=== PATIENT | male | born 1990 | race Caucasian/White ===

== ENCOUNTER 2022-01-22 18:56 | Emergency (ER) | payer OTHER, SELFPAY ==
--- NOTE | 2022-01-22 18:58 | ED.URI ---
HPI - URI/Sore Throat General Chief Complaint: Upper Respiratory Infection Stated Complaint: cough, sore throat, congestion Time Seen by Provider: 01/22/22 19:11 Source: patient and RN notes reviewed Mode of arrival: ambulatory Limitations: no limitations History of Present Illness HPI Narrative: 31-year-old male presents concern for 1 day history of fever, body aches, nasal congestion, rhinorrhea, cough. Reports he has taken Tylenol. He reports his son has been sick and so has his . MD elicited complaint: cough and sore throat Related Data Allergies Allergy/AdvReac Type Severity Reaction Status Date / Time No Known Allergies Allergy Verified 01/22/22 19:00 Review of Systems Review of Systems: CONSTITUTIONAL: Reports malaise, fever. EYES: Denies visual changes, redness, or discharge. ENT: Reports rhinorrhea, congestion, sore throat. Denies sinus pain, otalgia CARDIOVASCULAR: Denies chest pain, palpitations, or edema. RESPIRATORY: Reports cough. Denies dyspnea. GASTROINTESTINAL: Denies abdominal pain, nausea, vomiting, diarrhea SKIN: Denies rash or itching. MUSCULOSKELETAL: Reports myalgia. NEUROLOGIC: Denies headache. All systems reviewed & are unremarkable except as noted in HPI and below PMFSH Comments At time of signature, agree with nursing past medical, surgical, social and family history. There is no relevant family history pertinent to the presenting complaint Exam Narrative: GENERAL: Well-appearing, well-nourished, and in no acute distress. HEAD: Normocephalic EYES: PERRLA, conjunctivae clear ENT: Nares clear, clear discharge. Mucous membranes moist. TM pearly mares with sharp light reflex bilaterally; no tragal tenderness. Oropharynx not erythematous without lesions. Tonsils not enlarged and without exudate, no drooling, no hoarseness, no trismus, uvula midline. NECK: Supple. No lymphadenopathy CHEST: Clear to auscultation, breath sounds equal. No wheezing, rhonchi, rales, or stridor. No respiratory distress, speaks in full sentences. Cough noted HEART: Regular rate and rhythm. No murmur heard. SKIN: Warm, dry, no rash. NEURO: Alert and oriented x3. PSYCH: Normal mood and affect Course Course Emergency Course: Patient is aware of diagnosis, understands and agrees to treatment plan. Anticipatory guidance given. Patient agrees to follow-up as directed and is aware of reasons to seek care at the emergency department. Portions of this record may have been created with voice recognition software Level of Care: Express Care Visit Vital Signs Vital signs: Reviewed. MDM - URI/Sore Throat MDM Narrative Medical decision making narrative: Differential diagnosis considered: Tracy virus, strep pharyngitis, allergic rhinitis, upper respiratory tract infection, sinusitis, rhinosinusitis, nasopharyngitis. viral pharyngitis, otitis media, otitis externa, pneumonia, bronchitis, viral cough syndrome, viral syndrome, and influenza. Exam findings show no acute concerns or changes; patient is non-toxic appearing and is in no distress. Patient is appropriate for outpatient treatment and follow-up. Lab Data Attestation: I reviewed the patient's lab results. Critical Care Time Critical Care Time Critical Care Time: No Discharge Plan Discharge Clinical Impression: Influenza-like illness Patient Disposition: Home, Self-Care Condition: Stable Instructions: Viral Syndrome (ED) Additional Instructions: -Your symptoms are likely caused by a virus, and antibiotic does not cure viral illness. -Take strict precautions to prevent the spread of your virus. Be diligent about covering your cough (even when you are alone) and washing your hands frequently. -You may contagious until you have been symptom and/or fever free for 24 hours without fever reducing medicine -Alternate Ibuprofen and Tylenol for pain and fever relief (per package directions) -Some Cough medicines may make you drowsy, do not take it if you have
[2022-01-22 19:07] VITALS: BP 129/84; PULSE 73; RESP 16; TEMP 37.6; O2SAT 99
== END 2022-01-22 19:26 | disposition home or self-care (01) ==
PROVIDERS: Emergency Provider Nurse Practitioner
DX: J11.1 Influenza due to unidentified influenza virus with other respiratory manifestations (principal)
CPT/HCPCS: 87804; 99213; G0463

== ENCOUNTER 2022-01-29 19:18 | Emergency (ER) | payer OTHER, SELFPAY ==
[2022-01-29 19:25] VITALS: BP 138/79; PULSE 59; RESP 16; O2SAT 99
--- NOTE | 2022-01-29 19:36 | ED.URI ---
HPI - URI/Sore Throat General Chief Complaint: Upper Respiratory Infection Stated Complaint: sore throat Time Seen by Provider: 01/29/22 19:30 Source: patient and RN notes reviewed Mode of arrival: ambulatory Limitations: no limitations History of Present Illness HPI Narrative: 31 y/o male presented for c/o sore throat for about one week. Endorses for about 1-2 weeks sinus congestion, drainage, cough, and fever. Here last week for the same complaints, dx with viral infection. Pt taking Sudafed and robitussin with codeine as directed for symptoms. Denies improvement. is sick with similar symptoms. MD elicited complaint: cough Related Data Allergies Allergy/AdvReac Type Severity Reaction Status Date / Time No Known Allergies Allergy Verified 01/22/22 19:00 Review of Systems Review of Systems: CONSTITUTIONAL: Endorses malaise, chills, sweats, fever EYES: Denies visual changes, redness, or discharge ENT: Reports rhinorrhea, congestion, sinus pain, sore throat CARDIOVASCULAR: Denies chest pain, palpitations, edema RESPIRATORY: Reports cough, post nasal drainage. Denies dyspnea GASTROINTESTINAL: Denies abdominal pain, nausea, vomiting, diarrhea SKIN: Denies rash or itching Exam Narrative: GENERAL: well-appearing EYES: PERRLA, conjunctivae clear ENT: Mucous membranes moist. Right TM pearly mares with normal light reflex Left TM mild erythema with normal light reflex; no tragal tenderness. Oropharynx erythematous with left tonsillar lesion c/w stone; no drooling, no hoarseness, no trismus, uvula midline. Lesion to tongue left of midline stating he bit his tongue. NECK: Supple. No lymphadenopathy CHEST: Clear to auscultation, breath sounds equal. HEART: Regular rate and rhythm. No murmur heard. SKIN: Warm, dry, no rash. Course Course Emergency Course: Patient is aware of diagnosis, understands and agrees to treatment plan. Anticipatory guidance given. Patient agrees to follow-up as directed and is aware of reasons to seek care at the emergency department. Portions of this record may have been created with voice recognition software Level of Care: Express Care Visit Vital Signs Vital signs: Vital Signs Pulse Rate 59 L 01/29/22 19:25 Respiratory Rate 16 01/29/22 19:25 Blood Pressure 138/79 01/29/22 19:25 Pulse Oximetry 99 01/29/22 19:25 Oxygen Delivery Room Air 01/29/22 19:25 Pulse Rate 59 L 01/29/22 19:25 Respiratory Rate 16 01/29/22 19:25 Blood Pressure 138/79 01/29/22 19:25 Pulse Oximetry 99 01/29/22 19:25 Oxygen Delivery Room Air 01/29/22 19:25 reviewed MDM - URI/Sore Throat MDM Narrative Medical decision making narrative: Neg strep reviewed with pt. Advised supportive measures and signs/symptoms to go to the ER. Pt is appropriate for outpt treatment and f/u. Differential Diagnosis Differential diagnosis: Likely upper respiratory infection, sinusitis, viral infection, bronchitis and pharyngitis Discharge Plan Discharge Clinical Impression: Upper respiratory infection Qualifiers: URI type: unspecified URI Qualified Code(s): J06.9 - Acute upper respiratory infection, unspecified Patient Disposition: Home, Self-Care Condition: Stable Instructions: Upper Respiratory Infection (ED) Additional Instructions: Rapid strep swab was negative today You will be notified in a few days if the culture comes back positive for strep, and appropriate antibiotics will be called in at that time. if symptoms are due to a viral illness, it is not treated with antibiotics. Viral symptoms can be present for up to 10-14 days. Recommend Flonase spray and Zyrtec for sinus congestion Cough syrup may cause drowsiness; avoid driving or take it at night time. Tylenol every 8 hours as needed for pain/fever Soft foods, cool liquids, warm tea. Gargle with warm saltwater twice a day. Chloraseptic spray and throat lozenges. Rest and stay hydrated. --Follow up with your PCP if symptom
== END 2022-01-29 19:46 | disposition home or self-care (01) ==
PROVIDERS: Emergency Provider Nurse Practitioner Family
DX: J06.9 Acute upper respiratory infection, unspecified (principal)
CPT/HCPCS: 87081; 87880; 99213; G0463

== ENCOUNTER 2022-06-17 19:53 | Emergency (ER) | payer OTHER, SELFPAY ==
[2022-06-17 20:10] VITALS: BP 133/75; PULSE 65; RESP 16; TEMP 36.8; O2SAT 99
--- NOTE | 2022-06-17 20:21 | ED.NAVMDI ---
HPI - Nausea/Vomiting/Diarrhea General Chief complaint: Nausea/Vomiting/Diarrhea Stated complaint: DIARRHEA/ELEVATED BLOOD PRESSURE Source: patient and RN notes reviewed History of Present Illness HPI Narrative: 32 year male presents to urgent care with complaints of diarrhea and headache since this morning. Patient states he took his blood pressure 3 times today at the [facility] which were all elevated with the systolic reading being in the 140s. Patient denies a history of high blood pressure. Denies any vomiting, fevers, chills chest pain, shortness of breath. Denies any dizziness or blurry vision. Denies any abdominal pain. Patient states he took an aspirin hours ago. Some parts of this dictation were generated by voice recognition software and may contain typographical and/or grammatical inaccuracies. Related Data Allergies Allergy/AdvReac Type Severity Reaction Status Date / Time No Known Allergies Allergy Verified 01/22/22 19:00 Review of Systems Review of Systems: Pertinent positives and pertinent negatives per HPI. PMFSH Comments At the time of my signature, I reviewed and agree with the nursing past medical, surgical, social, and family history. There is no relevant family history pertinent to the patient complaint. Exam Narrative: GENERAL: This is a well-nourished, well-developed patient, in no apparent distress. HEAD: normocephalic, atraumatic. EYES: PERRL. Sclera clear/white. Vision is grossly intact. EARS: External ears normal, auditory canals clear and without drainage, TMs normal without perforation. Hearing grossly intact. NOSE: External nose normal with no obvious nasal discharge, nares without redness, no rhinorrhea. THROAT: Mucous membranes moist, posterior pharynx clear. NECK: Neck supple, non-tender without lymphadenopathy, masses or thyromegaly. CARDIOVASCULAR: Regular rate and rhythm without murmurs, gallops, or rubs. RESPIRATORY: Clear to auscultation. Breath sounds equal bilaterally. No wheezes, rales, or rhonchi. GASTROINTESTINAL: Abdomen soft, non-tender, nondistended. Bowel sounds are active. No hepato-splenomegaly, or palpable masses. No guarding. SKIN: warm, intact with no suspicious lesions or rash, good texture and turgor. NEURO: awake, alert, and oriented to person, place and time. There were no obvious focal neurologic abnormalities. EXTREMITIES: No clubbing, cyanosis, or edema. No joint tenderness, effusion, or edema noted. BACK: Nontender without deformity or crepitance. No flank tenderness. Course Course Level of Care: Express Care Visit Vital Signs Vital signs: Vital Signs Temperature 98.2 F 06/17/22 20:10 Pulse Rate 65 06/17/22 20:10 Respiratory Rate 16 06/17/22 20:10 Blood Pressure 133/75 06/17/22 20:10 Pulse Oximetry 99 06/17/22 20:10 Temperature 98.2 F 06/17/22 20:10 Pulse Rate 65 06/17/22 20:10 Respiratory Rate 16 06/17/22 20:10 Blood Pressure 133/75 06/17/22 20:10 Pulse Oximetry 99 06/17/22 20:10 Reviewed MDM - Nausea/Vomiting/Diarrhea MDM Narrative Medical decision making narrative: You've been diagnosed with a viral illness that would not require antibiotics at this time. You may take Imodium for diarrhea and get plenty of fluids. If you would like to eat food, you should follow the BRAT diet (bananas, rice, applesauce, and toast, or things of the like). If you develop any new or worsening symptoms, you should go to the emergency dept without hesitation. Follow up with your primary clinician in 2-5 days. Differential Diagnosis Differential diagnosis: Likely food poisoning, gastroenteritis and dehydration Critical Care Time Critical Care Time Critical Care Time: No Discharge Plan Discharge Clinical Impression: Gastroenteritis Patient Disposition: Home, Self-Care Condition: Stable Instructions: Gastroenteritis (ED) Additional Instructions: You've been diagnosed with a viral illness that would not require antibio
== END 2022-06-17 20:27 | disposition home or self-care (01) ==
PROVIDERS: Emergency Provider Nurse Practitioner Family
DX: K52.9 Noninfective gastroenteritis and colitis, unspecified (principal)
CPT/HCPCS: 99211; G0463

== ENCOUNTER 2022-10-22 17:53 | Observation (INO) | payer OTHER, SELFPAY ==
[2022-10-22] VITALS (11 sets, daily range): BP systolic 108–132; BP diastolic 48–76; PULSE 77–97; RESP 15–22; TEMP 36.7–37.8; O2SAT 96–100; BMI 33.2
--- NOTE | ~2022-10-22 | CT_ITS ---
EXAMINATION: CT abdomen pelvis w con DATE: 10/22/2022 20:50 INDICATION: right lower quadrant pain, n, v TECHNIQUE: Computed tomography (CT) of the abdomen and pelvis was performed with 100 mL Omnipaque-350 intravenous contrast. Automated exposure control and iterative reconstruction technique were employe d. The dose-length product was 995.84 mGy-cm. COMPARISON: None. FINDINGS: Lower thorax: Unremarkable Liver: Small hypodensities in the anterior left liver lobe and posterior right lobe, likely cysts or hemangiomas. Biliary/Gallbladder: Gallbladder is absent. No bile duct dilation. Pancreas: No mass or duct dilation. Spleen: Normal. Adrenals:No mass. Kidneys: No mass, stone, or hydronephrosis. GI tract: Multiple loops of mildly dilated small bowel in the upper and mid abdomen, no transition po int, pneumatosis, and interloop fluid, or wall thickening. No large bowel dilation. Mild periappendic eal stranding without dilation. Mesentery/Peritoneum: No ascites, mass, or free air. Retroperitoneum: No mass. Pelvis: Pelvic organs are within normal limits. Soft Tissues: Soft tissues and body wall unremarkable. Bones: No acute osseous finding. IMPRESSION: Mild periappendiceal stranding may represent mild/early acute uncomplicated appendicitis in the appro priate clinical context. Multiple loops of dilated small bowel in the upper and mid abdomen without focal transition point. Th conrad findings may be related to small bowel ileus, noting that early or partial obstruction are not ex cluded. Reviewed, dictated and finalized at location K. IMPRESSION: Mild periappendiceal stranding may represent mild/early acute uncomplicated charlie endicitis in the appropriate clinical context. Multiple loops of dilated small bowel in the upper and mid abdomen without foca l transition point. These findings may be related to small bowel ileus, noting that early or partial obstruction are not excluded.
--- NOTE | ~2022-10-22 | XR_ITS ---
EXAMINATION: XR chest 1V Exam Date/Time: 10/22/2022 20:40 CDT HISTORY: cough, body aches, fever, n/v Comparison: None. RESULT: Lines, tubes, and devices: None. Lungs and pleura: Clear. Cardiomediastinal silhouette: Normal. Other: No acute osseous or upper abdominal finding. IMPRESSION: No acute cardiopulmonary process. Reviewed, dictated and finalized at location K.
--- NOTE | 2022-10-22 17:58 | ECG_ITS ---
Measurements Intervals [place] Rate: 99 P: 15 [place]: 142 QRS: 0 QRSD: 103 T: 45 QT: 340 QTc: 437 Interpretive Statements SINUS RHYTHM DELAYED PRECORDIAL R/S TRANSITION ST ELEVATION IN DIFFUSE LEADS- CONSISTENT WITH INJURY, PERICARDITIS, OR EARLY REPOLARIZATION BASELINE WANDER- II, III ABNORMAL ECG NO PREVIOUS ECG AVAILABLE FOR COMPARISON Electronically Signed On 10-22-2022 21:20:51 CDT by Marc Jade D.O.
--- NOTE | 2022-10-22 19:57 | ED.GENADULT ---
HPI - General Adult General Chief complaint: Weakness Stated complaint: WEAK,N/V/D Time Seen by Provider: 10/22/22 19:44 History of Present Illness HPI narrative: Patient is a 32-year-old gentleman who presents emergency department with chief complaint of fever body aches generalized malaise nausea vomiting. The patient reports the symptoms started this weekend after he played softball. The patient reports that he recently traveled to [place] with his significant other and reports that he started having body aches and pain between his shoulder blades. The patient states that he has had a little bit of a cough and has had nausea and vomiting and has not been able to keep much fluids down. Patient reports that he has taken ibuprofen with his last dose being in the emergency department department around 6 PM. The patient reports that he has pain throughout his abdomen that is not improved by anything Related Data Home Medications Medication Instructions Recorded Confirmed No Home Medications 06/17/22 06/17/22 Allergies Allergy/AdvReac Type Severity Reaction Status Date / Time No Known Allergies Allergy Verified 01/22/22 19:00 Review of Systems Review of Systems: A 10 system review of systems was completed on the patient and is negative except for what is stated in the HPI. Nursing and ancillary documentation was reviewed. PMFSH Comments Past surgical history significant for cholecystectomy Exam Narrative: GENERAL: Well-appearing, well-nourished, and in no acute distress. HEAD: Normocephalic, atraumatic. EYES: PERRLA and EOMI. ENT: Nares clear, no rhinorrhea or epistaxis. Mucous membranes moist. NECK: Supple. No nuchal rigidity CHEST: Clear to auscultation. No respiratory distress. HEART: Regular rate and rhythm. No murmur heard. Normal peripheral pulses. ABDOMEN: Soft, tenderness to palpation in the right lower quadrant and left lower quadrant and right upper quadrant, nondistended, normal active bowel sounds. EXTREMITIES: Normal range of motion. No edema. SKIN: Warm, dry, no rash. NEURO: No focal deficits. Alert and oriented x3. PSYCH: Normal mood and affect. Course Vital Signs Vital signs: Vital Signs Temperature 37.8 C H 10/22/22 17:57 Pulse Rate 97 10/22/22 17:57 Respiratory Rate 18 10/22/22 17:57 Blood Pressure 128/73 10/22/22 17:57 Pulse Oximetry 99 10/22/22 17:57 Oxygen Delivery Room Air 10/22/22 17:57 Temperature 37.8 C H 10/22/22 17:57 Pulse Rate 80 10/22/22 21:51 Respiratory Rate 15 10/22/22 21:51 Blood Pressure 108/48 L 10/22/22 21:51 Pulse Oximetry 100 10/22/22 21:51 Oxygen Delivery Room Air 10/22/22 17:57 Medical Decision Making [facility] Narrative Medical decision making narrative: Differential diagnosis includes viral syndrome, COVID, flu, pneumonia, appendicitis, bowel obstruction Laboratory studies were obtained on the patient which showed a white count of 12.1 electrolytes showed a slightly elevated bilirubin at 1.9 magnesium was 1.5 rest of his liver enzymes were within normal limits lipase was 31 urinalysis showed trace ketones but otherwise no evidence of infection influenza was negative COVID was negative and strep was negative Chest x-ray showed no focal infiltrate CT scan of the abdomen pelvis showed mild periappendiceal stranding concerning for mild/early appendicitis The patient was reexamined and was tender in the right lower quadrant There also was evidence of ileus on the CT scan. The case was discussed with Dr. Cuadra surgical service patient will be started on Zosyn and will be admitted to the surgical service Vital Signs Vital Signs: Vital Signs Temperature 37.8 C H 10/22/22 17:57 Pulse Rate 97 10/22/22 17:57 Respiratory Rate 18 10/22/22 17:57 Blood Pressure 128/73 10/22/22 17:57 Pulse Oximetry 99 10/22/22 17:57 Oxygen Delivery Room Air 10/22/22 17:57 Temperature 37.8 C H
[2022-10-22 20:16] LABS: Basophils Absolute Auto 0.1 K/mm3 (0.0-0.1); Basophils Percent Auto 0.4 % (0.2-1.2); Eosinophils Percent Auto 0.2 % (0-4.4); Hematocrit 42.9 % (42.0-52.0); Hemoglobin 15.2 g/dL (14.0-18.0); Immature Granulocyte Absolute 0.04 K/mm3 (0.00-0.031); Immature Granulocyte Percent A 0.3 % (0-0.5); Lymphocytes Absolute Auto 0.26 K/mm3 (0.9-3.2); Lymphocytes Percent Auto 2.1 % (18.3-44.2); Mean Corpuscular HGB Conc 35.4 g/dl (32-36); Mean Corpuscular Hemoglobin 32.7 pg (26-34); Mean Corpuscular Volume 92.3 fl (80-100); Mean Platelet Volume 9.8 fl (7.4-10.4); Monocytes Absolute Auto 0.4 K/mm3 (0.1-0.6); Monocytes Percent Auto 3.6 % (2.6-8.5); Neutrophils Absolute Auto 11.3 K/mm3 (1.3-6.7); Neutrophils Percent Auto 93.4 % (45.5-73.1); Platelet Count Result 198 k/mm3 (150-375); Red Blood Count 4.65 M/mm3 (4.6-6.20); Red Cell Distribution Width 12.2 % (11.5-14.5); White Blood Count 12.1 K/mm3 (4.5-10.0)
[2022-10-22] MEDS: ONDANSETRON INJ 4 MG/2 ML VIAL IV PUSH (20:16)
[2022-10-22] MEDS: ACETAMINOPHEN 500 MG TABLET 1000 MG PO (20:16)
[2022-10-22] MEDS: SODIUM CHLORIDE 0.9% IV 1,000 ML 999 ML IV CONT ×2 (20:17→21:06)
[2022-10-22 20:18] LABS: Appearance Urine Clear (Clear); Bilirubin Urine Negative (Negative); Blood Urine Negative (Negative); Color Urine Dark Yellow (Yellow); Glucose Urine UA Negative (Negative); Ketones Urine Trace mg/dL (Negative); Leukocyte Esterase Ur Negative LEU/UL (Negative); Nitrate Urine Negative (Negative); Protein Urine Negative (Negative); Specific Grav Ur 1.029 (1.001-1.035); pH Urine 5.5 (5.0-9.0)
[2022-10-22 20:22] LABS: Add Urine Microscopic? NO
[2022-10-22 20:31] LABS: Alanine Aminotransferase 36 U/L (6-50); Albumin Level 4.1 g/dL (3.5-5.1); Alkaline Phosphatase 85 U/L (38-126); Anion Gap 7 mmol/L (8-16); Aspartate Amino Transferase 46 U/L (17-59); Bilirubin,Total 1.9 mg/dL (0.2-1.3); Blood Urea Nitrogen 18 mg/dL (9-20); Calcium 8.2 mg/dL (8.4-10.2); Carbon Dioxide 24 mmol/L (22-30); Chloride 103 mmol/L (98-107); Estimated CRCL calculation 134 ml/min; Estimated Glomerular Filt Rate > 60; Glucose 106 mg/dL (65-110); Lipase 31 U/L (23-300); Magnesium 1.5 mg/dL (1.6-2.3); Potassium 4.1 mmol/L (3.4-5.0); Sodium 134 mmol/L (137-145)
[2022-10-22 20:32] LABS: Lactic Acid Reflex 1.1 mmol/L (0.7-2.0)
[2022-10-22] MEDS: MAGNESIUM SULF 2 GM/WATER 50ML 2 GM/50 ML BAG IVPB (21:06)
[2022-10-22 21:13] LABS: Strep Group A RT-PCR NOT DETECTED (Negative)
[2022-10-22 21:24] LABS: Influenza A QL RT-PCR Negative (Negative); Influenza B QL RT-PCR Negative (Negative); SARS-CoV-2 RNA PCR Negative (Negative)
[2022-10-22] MEDS: PIPERACILLN/TAZ 3.375GM/NS50ML 3.375 GM/50 ML BAG IVPB (22:46)
[2022-10-22] MEDS: SODIUM CHLORIDE 0.9% IV 1,000 ML 125 ML IV CONT (22:47)
[2022-10-22] MEDS: MORPHINE SULFATE (*CRX) 4 MG/ML INJ IV PUSH (23:21)
--- NOTE | 2022-10-22 23:23 | ADMGEN ---
This patient, Zeke Veloz, was admitted to 2 Medical Room 240-. Patient/family oriented to hospital policies and general routines including ID bracelet, bed and alarms, visiting hours, pain management, procedures, bathroom and other care routines, personal items, smoking policy, room service/diet, and visiting hours. Information on how to activate the Rapid Response Team has been discussed. Patient/Family are encouraged to report perceived risks to care and to ask questions if they do not understand what they are told or what they should do.
[2022-10-23] VITALS (12 sets, daily range): BP systolic 104–145; BP diastolic 55–86; PULSE 63–78; RESP 12–18; TEMP 36.4–36.9; O2SAT 93–99
[2022-10-23] MEDS: HYDROmorphone HCL INJ (*CRX) 1 MG/ML SYR IV PUSH ×2 (00:01→05:10)
[2022-10-23] MEDS: PIPERACILLN/TAZ 3.375GM/NS50ML 3.375 GM/50 ML BAG IVPB ×2 (04:52→09:50)
[2022-10-23 05:36] LABS: Hematocrit 39.4 % (42.0-52.0); Hemoglobin 13.5 g/dL (14.0-18.0); Mean Corpuscular HGB Conc 34.3 g/dl (32-36); Mean Corpuscular Hemoglobin 32.8 pg (26-34); Mean Corpuscular Volume 95.6 fl (80-100); Mean Platelet Volume 10.1 fl (7.4-10.4); Platelet Count Result 170 k/mm3 (150-375); Red Blood Count 4.12 M/mm3 (4.6-6.20); Red Cell Distribution Width 12.3 % (11.5-14.5); White Blood Count 6.4 K/mm3 (4.5-10.0)
[2022-10-23 05:43] LABS: Alanine Aminotransferase 576 U/L (6-50); Albumin Level 3.4 g/dL (3.5-5.1); Alkaline Phosphatase 101 U/L (38-126); Anion Gap 3 mmol/L (8-16); Aspartate Amino Transferase 743 U/L (17-59); Bilirubin,Total 3.5 mg/dL (0.2-1.3); Blood Urea Nitrogen 15 mg/dL (9-20); Calcium 7.6 mg/dL (8.4-10.2); Carbon Dioxide 28 mmol/L (22-30); Chloride 105 mmol/L (98-107); Estimated CRCL calculation 132 ml/min; Estimated Glomerular Filt Rate > 60; Glucose 109 mg/dL (65-110); Potassium 4.2 mmol/L (3.4-5.0); Sodium 136 mmol/L (137-145)
[2022-10-23] MEDS: SODIUM CHLORIDE 0.9% IV 1,000 ML 125 ML IV CONT (06:29)
[2022-10-23 06:35] LABS: Band Neutrophils Percent 24 % (0-6); Lymphocytes Absolute Manual 0.44 K/mm3 (1.1-4.5); Monocytes Absolute Manual 0.25 K/mm3 (0.1-0.90); Monocytes Percent Manual 4 % (3-9); Neutrophils Absolute Manual 5.69 K/mm3 (1.3-6.7); Neutrophils Percent Manual 65 % (46-73); Total Cells Counted 100
[2022-10-23 06:36] LABS: Platelet Estimate Adequate (Adequate)
[2022-10-23 06:37] LABS: Schistocytes None Seen (NORMAL)
--- NOTE | 2022-10-23 07:19 | PM.IMHP ---
H&P: HPI History of Present Illness Date/Time: 10/23/22 07:19 Chief Complaint: acute appendicitis Narrative: Pt is a 32 y/o M presenting to ED c/o 3 day h/o worsening abd pain, N/V, generalized malaise. Pt reports pain initially diffuse, but now localized to RLQ. Pt reports poor appetite and N/V. Pt denies previous similar episodes/symptoms. Pt reports subjective f/c. Review of Systems Review of Systems: All systems reviewed & are unremarkable except as noted in HPI and below Constitutional: Constitutional: Reports as per HPI, Reports anorexia, Reports body ache(s), Reports chills, Reports fatigue, Reports fever(s), Reports lethargy, Reports malaise, Reports poor appetite and Reports weakness Gastrointestinal: Gastrointestinal: Reports as per HPI, Reports abdominal pain, Reports bloating, Reports GI cramping, Reports nausea and Reports vomiting PMFSH Family History Family History Father Acute myocardial infarction Diabetes mellitus Hypertension Mother Cerebrovascular accident Social History Social History Smoking status: Never smoker Alcohol intake: never Substance use: never Lack of Transportation: No Lack of Food: Never True Current Housing: I Have Housing Concerned About Future Housing: No Difficulty Paying Gas/Electric Bills: No Difficulty Paying for Meds: No Currently Unemployed: No Education: Associate Degree Difficulty w/ Childcare or Family Care: No Spiritual care concerns: No Comments PMH - cholecystitis PSH - cholecystectomy Meds Home Medications and Allergies Home Medications Medication Instructions Recorded Confirmed Type doxycycline hyclate 20 mg tablet 40 mg PO DAILY 10/22/22 10/22/22 History Allergies Allergy/AdvReac Type Severity Reaction Status Date / Time No Known Allergies Allergy Verified 01/22/22 19:00 Vital Signs Vital Signs - 24 hr 10/22/22 17:57 10/22/22 19:43 10/22/22 19:45 Temperature 37.8 C H Pulse Rate 97 85 86 Respiratory Rate 18 22 H 18 Blood Pressure 128/73 Pulse Oximetry 99 97 96 Oxygen Delivery Room Air 10/22/22 20:00 10/22/22 20:15 10/22/22 20:30 Temperature Pulse Rate 80 80 84 Respiratory Rate 20 22 H 20 Blood Pressure Pulse Oximetry 96 96 96 Oxygen Delivery 10/22/22 20:50 10/22/22 21:00 10/22/22 21:15 Temperature Pulse Rate 86 84 91 Respiratory Rate 17 22 H 20 Blood Pressure Pulse Oximetry 96 98 97 Oxygen Delivery 10/22/22 21:51 10/22/22 23:30 10/22/22 23:13 Temperature 36.7 C Pulse Rate 80 77 Respiratory Rate 15 18 Blood Pressure 108/48 L 132/76 Pulse Oximetry 100 97 Oxygen Delivery Room Air 10/23/22 03:39 Temperature 36.8 C Pulse Rate 66 Respiratory Rate 18 Blood Pressure 104/55 L Pulse Oximetry 95 Oxygen Delivery Exam Const: General: cooperative, comfortable, no acute distress, tired appearing, uncomfortable and overweight HENMT: Head: normal to inspection, normocephalic and atraumatic Eyes: General: appearance normal, both eyes and all related structures Neck: Neck: normal visual inspection, full ROM and no lymphadenopathy Resp: Auscultation: clear to auscultation bilaterally Cardio: Rate: regular rate Rhythm: regular rhythm GI: Inspection: normal to inspection and distended GI Palp: Yes abdominal tenderness, Yes Soft to palpation, Yes Tenderness to palpation present (GI), Yes Guarding due to palpation present (GI) and No Rigid due to palpation Skin: General skin exam: normal color and no rashes or lesions noted Neuro: General: patient oriented x3 and CN's II-XI intact bilaterally Extrem: General: normal to inspection and full ROM Psych: Appearance: grossly normal H&P: Results Labs Labs: Short CBC 10/22/22 10/23/22 Range/Units 20:08 05:05 WBC 12.1 H 6.4 (4.5-10.0) K/mm3 Hgb 15.2 13.5 L (14.0-18.0) g
--- NOTE | 2022-10-23 07:25 | WPDHPUPDATE1 ---
History and Physical Update Update Date/Time: 10/23/22 07:25 History and Physical has been reviewed, including an updated exam of the patient. There are NO changes in the patient's condition. Risks, benefits, and alternatives have been discussed and questions answered. Patient agrees to proceed with procedure.
--- NOTE | 2022-10-23 09:18 | WPDANESEPPF ---
Anes - Initial Pre Proc Eval Procedure: Operation Date: 10/23/22 09:00 Proposed Procedures p Laparoscopic Appendectomy - Ness Cuadra MD Date/Time: 10/23/22 09:18 Surgeon: Ness Cuadra MD Pre Op Diagnosis: Abdominal Pain/Febrile Illness/Possible Early Appe Patient Data Age: 32 Gender: M Height: 1.83 m Weight: 111.1 kg Last Vital Signs Temp 97.9 F 10/23/22 08:00 Pulse 66 10/23/22 08:00 Resp 16 10/23/22 08:00 BP 110/59 L 10/23/22 08:00 Pulse Ox 95 10/23/22 08:00 O2 Del Method Room Air 10/23/22 08:00 Allergies Allergy/AdvReac Type Severity Reaction Status Date / Time No Known Allergies Allergy Verified 01/22/22 19:00 Home Medications Medication Instructions Recorded Confirmed Type doxycycline hyclate 20 mg tablet 40 mg PO DAILY 10/22/22 10/22/22 History Laboratory Tests 10/22/22 10/22/22 10/23/22 20:08 20:10 05:05 WBC 12.1 H K/mm3 6.4 K/mm3 (4.5-10.0) (4.5-10.0) RBC 4.65 M/mm3 4.12 L M/mm3 (4.6-6.20) (4.6-6.20) Hgb 15.2 g/dL 13.5 L g/dL (14.0-18.0) (14.0-18.0) Hct 42.9 % 39.4 L % (42.0-52.0) (42.0-52.0) MCV 92.3 fl 95.6 fl (80-100) (80-100) MCH 32.7 pg 32.8 pg (26-34) (26-34) MCHC 35.4 g/dl 34.3 g/dl (32-36) (32-36) RDW 12.2 % 12.3 % (11.5-14.5) (11.5-14.5) Plt Count 198 k/mm3 170 k/mm3 (150-375) (150-375) MPV 9.8 fl 10.1 fl (7.4-10.4) (7.4-10.4) Immature Gran % (Auto) 0.3 % Not Reportable (0-0.5) Neut % (Auto) 93.4 H % Not Reportable (45.5-73.1) Lymph % (Auto) 2.1 L % Not Reportable (18.3-44.2) [place] % (Auto) 3.6 % Not Reportable (2.6-8.5) Eos % (Auto) 0.2 % Not Reportable (0-4.4) Baso % (Auto) 0.4 % Not Reportable (0.2-1.2) Lymph # (Auto) 0.26 L K/mm3 Not Reportable (0.9-3.2) [place] # (Auto) 0.4 K/mm3 Not Reportable (0.1-0.6) Eos # (Auto) 0.0 K/mm3 Not Reportable (0-0.3) Baso # (Auto) 0.1 K/mm3 Not Reportable (0.0-0.1) Abs Immat Gran (auto) 0.04 H K/mm3 Not Reportable (0.00-0.031) Absolute Neuts (auto) 11.3 H K/mm3 Not Reportable (1.3-6.7) Absolute Nucleated RBC 0.0 K/mm3 Not Reportable (0.0-0.012) Total Counted 100 Neutrophils % (Manual) 65 % (46-73) Band Neutrophils % 24 H % (0-6) Lymphocytes % (Manual) 7.0 L % (18-44) Monocytes % (Manual) 4 % (3-9) Nucleated RBC % 0.0 % Not Reportable (0.0-0.2) Abs Neuts (Manual) 5.69 K/mm3 (1.3-6.7) Abs Lymphs (Manual) 0.44 L K/mm3 (1.1-4.5) Abs Monocytes (Manual) 0.25 K/mm3 (0.1-0.90) Platelet Estimate Adequate (Adequate) Schistocytes None seen (NORMAL) Sodium 134 L mmol/L 136 L mmol/L (137-145) (137-145) Potassium 4.1 mmol/L 4.2 mmol/L (3.4-5.0) (3.4-5.0) Chloride 103 mmol/L 105 mmol/L (98-107) (98-107) Carbon Dioxide 24 mmol/L 28 mmol/L (22-30) (22-30) Anion Gap 7 L mmol/L 3 L mmol/L (8-16) (8-16) BUN 18 mg/dL 15 mg/dL (9-20) (9-20) Creatinine 0.90 mg/dL 0.90 mg/dL (0.7-1.3) (0.7-1.3) Estim Creat Clear Calc 134 ml/min 132 ml/min Estimated GFR > 60 > 60 (59 - ) (59 - ) Glucose 106 mg/dL 109 mg/dL (65-110) (65-110) Lactic Acid 1.1 mmol/L (0.7-2.0) Calcium 8.2 L mg/dL 7.6 L mg/dL (8.4-10.2) (8.4-10.2) Magnesium 1.5 L mg/dL (1.6-2.3) Total Bilirubin 1.9 H mg/dL 3.5 H mg/dL (0.2-1.3) (0.2-1.3) AST 46 U/L 743 H U/L (17-59) (17-59) ALT 36 U/L 576 H U/L (6-50) (6-50) Alkaline Phosphatase 85 U/L 101 U/L (38-126) (38-126) Total Protein 7.0 g/dL 6.0 L g/dL (6.3-8.2) (6.3-8.2) Albumin 4.1 g/dL 3.4 L g/dL (3.5-5.1) (3.5-5.1)
[2022-10-23] MEDS: LACTATED RINGERS 1,000 ML 30 ML IV CONT (09:19)
[2022-10-23] MEDS: BUPIVACAINE/EPINEPHRINE 0.25% 10 ML VIAL 30 ML INFILTRATE (09:56)
--- NOTE | 2022-10-23 10:05 | W.PM.PROC2 ---
Procedure Note - Detailed Date of Procedure 10/23/22 Pre-op Diagnosis acute appendicitis Post-op Diagnosis Same Procedure Performed Laparoscopic appendectomy Surgeon Ness Cuadra MD Anesthesia General Indications 32-year-old male presenting to the emergency department with acute appendicitis Findings Acute uncomplicated appendicitis Description of Procedure The patient was taken to the operating room and placed in the supine position. After adequate induction of general anesthesia, the patient was prepped and draped in the normal sterile fashion. A time-out was then done to verify the patient's identity, as well as the procedure being performed. Began by making a 5 mm incision in the infraumbilical region. Through this a Veress needle was placed in the peritoneal cavity and CO2 gas was insufflated. After adequate pneumoperitoneum was achieved, the Veress needle was removed and a 5 mm port trocar was placed through this incision. I then placed the laparoscopic through this trocar and under direct visualization placed 2 further 5 mm suprapubic port, as well as an additional 12 mm port in the left lower abdomen. At this point, the cecum was identified and retracted both medially and cephalad. This allowed us to expose the appendix. The appendix was noted to be inflamed and injected, however no obvious perforation was noted. I was then able to grasp the tip of the appendix and retract this laterally and anteriorly. This allowed us to expose the base of the appendix with the cecum. At this point I created a window between the appendix and the mesoappendix using a Rosalie dissector. Once accomplished, I transected the mesoappendix with a white vascular staple load. The stapler was then re-loaded with a blue thick tissue staple load and this was used to transect the base of the appendix with the cecum. I then placed the appendiceal specimen in an endo-pouch and removed this through the 12 mm port site. The specimen will now be sent to pathology for further review. I then copiously irrigated the right lower quadrant. No other pathology was noted and both staple lines were noted to be intact and hemostatic. I then proceeded to close the fascia of the 12 mm left lower quadrant port site with a Kostas cone an 0 Vicryl suture. The abdomen was then desufflated and all ports removed. All port sites were then closed with 4-0 Monocryl subcuticular suture. Dermabond was placed on all wounds. The patient tolerated the procedure well and was extubated postoperatively. He will be transferred to the recovery room in stable condition. Estimated Blood Loss 5 Drains No Packing No Pathology Yes Complications No immediate complications Condition Stable Disposition PACU [facility] Billing Surgery - Charge Forward: Surgery Billing
[2022-10-23] MEDS: HYDROcodone/acetaminophen (*CRX) 7.5-325 MG TABLET 1 TAB PO (12:29)
--- NOTE | 2022-10-29 07:39 | PM.DS ---
DS: Admitting Diagnosis Discharge Date 10/23/22 Admitting Diagnosis acute appendicitis DS: Discharge Diagnosis Discharge Diagnosis (1) Acute appendicitis: Code(s): K35.80 - Unspecified acute appendicitis Status: Acute Assessment and Plan: status post appendectomy, continue routine postoperative care, home with p.o. analgesia and Colace, follow-up 2 weeks DS: Summary Hospital Course Reason for hospitalization: Acute appendicitis Hospital Course: The patient is a 32-year-old male presenting to the hospital complaining lower abdominal pain. Workup, including imaging, was significant for acute appendicitis. The patient was admitted to the surgical service and started on IV antibiotics. Upon evaluation, the decision was made for urgent appendectomy. The patient was taken to the operating room and laparoscopic appendectomy was performed, please see full operative report for details of that procedure. Postoperatively, the patient did very well and was transferred back to the surgical floor. The patient was up and ambulating without difficulty and he was able to tolerate a bland diet. His pain was well controlled with p.o. analgesia. The patient will be now be discharged home with p.o. analgesia and Colace and instructions for routine postoperative care. He will follow up with me in 2 weeks. Status at Discharge Functional status at discharge: independent ambulation Overall status at discharge: patient is progressing back to baseline Time Spent with Patient Time attestation: Total time spent providing and/or coordinating discharge services: Time spent: Less than 30 minutes Exam Const: General: cooperative, comfortable and no acute distress Resp: Auscultation: clear to auscultation bilaterally Cardio: Rate: regular rate Rhythm: regular rhythm GI: Inspection: normal to inspection, non-distended and incision GI Palp: Yes abdominal tenderness, Yes Soft to palpation, Yes Tenderness to palpation present (GI), No Guarding due to palpation present (GI) and No Rigid due to palpation DS: Data Data Completed and Pending Completed studies during hospitalization: Pending at discharge 10/23/22 09:51 Surgical [PTH] Routine Discharge Plan Discharge Attending physician on discharge: Ness Cuadra Consulting providers: Marc Jade; Alex Sinclair; Mahesh Yoder Discharging Clinician: Ness Cuadra Anticipated Discharge Date/Time: 10/23/22 14:00 Patient Disposition: Home, Self-Care Activity: may shower Diet: as tolerated Wound Care Instructions: incision open to air Discharge Instructions: DISCHARGE INSTRUCTION SHEET FOR HERNIA, GALLBLADDER AND APPENDIX SURGERIES DR. CUADRA PATIENT TO TAKE HOME 1. May shower in 24 hours, no soaking in bath x 2weeks. 2. Call office for: Wound increasingly painful or bleeding Vomiting Fever of greater than 101 degrees 3. If no bowel movement for three days, take 1 oz. (30 ml) Milk of Magnesia or MiraLax 17g 1 to 2 times daily. 4. No heavy lifting > 10-15 pounds x 6 weeks for hernia repairs and 2 weeks for laparoscopic cholecystectomy or appendectomy. 5. No driving for 3 days or while taking narcotic pain medications. 6. Ice to surgical site for 48 hours (30 min on, then 30 min off). 7. Up walking 10-30 minutes three times per day. 8. Resume previous home medications. 9. Follow-up 10-14 days in office for wound check or as previously scheduled. ([phone]) 10. Oral pain medications prescription to be sent to pharmacy. Take Tylenol 500mg every 6 hours and Ibuprofen 600mg every 6 hours for the first 2 days, then as needed. 11. NUTRITION: Start out by drinking fluids and increase your diet as tolerated. If you experience nausea, try dry toast, crackers, and 7-UP. If nausea or vomiting persists, contact your surgeon?s office. 12. Gallbladders-Low Fat Diet for 2 we
== END 2022-10-23 13:58 | disposition home or self-care (01) ==
LOC: ANHED 22:03 → ANH2MED 23:03
PROVIDERS: Admitting Provider Surgery; Emergency Provider Emergency Medicine; Visit Provider Surgery
PROC: 0DTJ4ZZ Resection of Appendix, Percutaneous Endoscopic Approach (ICD-10-PCS; CPT 44970; principal; 2022-10-23 09:00)
DX: K35.80 Unspecified acute appendicitis (principal); Z20.822 Contact with and (suspected) exposure to COVID-19; R94.31 Abnormal electrocardiogram [ECG] [EKG]; E66.9 Obesity, unspecified; Z68.33 Body mass index [BMI] 33.0-33.9, adult
CPT/HCPCS: 44970; 36415; 71045; 74177; 80053; 81003; 83605; 83690; 83735; 85025; 87636; 87651; 88304; 93005; 96361; 96365; 96367; 96375; 99285; A9270; G0378; J1100; J1170; J2250; J2270; J2405; J2543; J2704; J3475; J7030; J7120; Q9967

== ENCOUNTER 2023-08-11 19:03 | Emergency (ER) | payer OTHER, SELFPAY ==
--- NOTE | 2023-08-11 19:06 | ED.EXTPRO ---
HPI - Extremity Problem General Chief complaint: Skin/Abscess/Foreign Body Stated complaint: Swollen Thumb Time Seen by Provider: 08/11/23 19:05 Source: patient Mode of arrival: ambulatory Limitations: no limitations History of Present Illness HPI Narrative: Zeke is a 33-year-old male patient presenting to the clinic today with complaints of a swollen/possibly infected right thumb. He reports that this has been swollen over the last 1-2 days. Is becoming more painful and swollen and about twice the size of his left thumb. States this morning he was able to express some green and yellow drainage from the medial cuticle. He denies any injury or known foreign body. Related Data Allergies Allergy/AdvReac Type Severity Reaction Status Date / Time No Known Allergies Allergy Verified 08/11/23 19:11 Review of Systems Review of Systems: Pertinent positives per HPI. Patient denies any fever, chills, rash, headache, visual changes, dizziness, cough, runny nose, sore throat, shortness of breath, chest pain, palpitations, nausea, vomiting, diarrhea, constipation, abdominal pain, or any urinary issues. PMFSH Family History Family History Father Acute myocardial infarction Diabetes mellitus Hypertension Mother Cerebrovascular accident Social History Social History Smoking status: Never smoker Alcohol intake: never Substance use: never Lack of Transportation: No Lack of Food: Never True Current Housing: I Have Housing Concerned About Future Housing: No Difficulty Paying Gas/Electric Bills: No Difficulty Paying for Meds: No Currently Unemployed: No Education: Associate Degree Difficulty w/ Childcare or Family Care: No Spiritual care concerns: No Comments At the time of my signature, I reviewed and agree with the nursing past medical, surgical, social, and family history. There is no relevant family history pertinent to the patient complaint. Exam Narrative: General: Well-developed, well nourished, in no apparent distress Head: Normocephalic, atraumatic. Cardio: Regular rate and rhythm, s1 and s2 normal, no murmur appreciated. Resp: Clear to auscultation bilaterally, no rhonchi, rales, wheezing or rubs. Musculoskeletal: No deformity, redness and swelling noted to the right 5th medial thumb, mild erythema, tender to palpation, grossly normal range of motion, muscle strength strong and equal, peripheral pulse strong, no edema, no cyanosis, normal gait and station Course Course Emergency Course: Portions of this record may have been created with voice recognition software. Level of Care: Express Care Visit Vital Signs Vital signs: Vital signs reviewed MDM - Extremity (Nontraumatic) MDM Narrative Medical decision making narrative: At the time of visit patient is resting comfortably on the exam table. Patient appears to be nontoxic. Plan: I suspect patient has thumb infection-possibly from ingrown fingernail versus paronychia. Will send in prescription for clindamycin. Supportive measures were discussed with the patient and they voiced understanding discharge instructions and agrees to treatment plan. Return precautions reviewed Differential Diagnosis Differential diagnosis: Likely gout, cellulitis and other (Paronychia, skin infection) Discharge Plan Discharge Clinical Impression: Infection of thumb Patient Disposition: Home, Self-Care Condition: Stable Instructions: Antibiotic Form, Paronychia (ED) Additional Instructions: Keep area clean and dry Wash daily with soap and water May do Epson salt soaks-3 to 4 times a day in warm water Take clindamycin as prescribed Follow-up with your primary care doctor next week if symptoms persist or sooner if they worsen Prescriptions: New clindamycin HCl 300 mg capsule 300 mg PO Q8H 7 Da
[2023-08-11 19:13] VITALS: BP 131/92; PULSE 75; RESP 16; TEMP 37.1; O2SAT 97
== END 2023-08-11 19:26 | disposition home or self-care (01) ==
PROVIDERS: Emergency Provider Nurse Practitioner Family
DX: L08.9 Local infection of the skin and subcutaneous tissue, unspecified (principal)
CPT/HCPCS: 99213; G0463

== ENCOUNTER 2024-01-15 15:09 | Emergency (ER) | payer OTHER, SELFPAY ==
[2024-01-15 15:18] VITALS: BP 132/76; PULSE 56; RESP 16; TEMP 36.8; O2SAT 99
--- NOTE | 2024-01-15 15:24 | ED.URI ---
HPI - URI/Sore Throat General Chief Complaint: Upper Respiratory Infection Stated Complaint: congestion Time Seen by Provider: 01/15/24 15:24 Source: patient and RN notes reviewed Mode of arrival: ambulatory Limitations: no limitations History of Present Illness HPI Narrative: 33 year old male presents with concern for nasal congestion, rhinorrhea, postnasal drainage, occasional sore throat. He reports he has been taking DayQuil and NyQuil. Reports body aches. Denies fever. MD elicited complaint: cough and nasal congestion Related Data Allergies Allergy/AdvReac Type Severity Reaction Status Date / Time No Known Allergies Allergy Verified 08/11/23 19:11 Review of Systems Review of Systems: CONSTITUTIONAL: Denies malaise, chills, sweats, or fever. EYES: Denies visual changes, redness, or discharge. ENT: Reports rhinorrhea, congestion, sinus pain, otalgia CARDIOVASCULAR: Denies chest pain, palpitations, or edema. RESPIRATORY: Reports cough. Denies dyspnea. GASTROINTESTINAL: Denies abdominal pain, nausea, vomiting, diarrhea SKIN: Denies rash or itching. MUSCULOSKELETAL: Denies myalgia. NEUROLOGIC: Denies headache. All systems reviewed & are unremarkable except as noted in HPI and below PMFSH Family History Family History Father Acute myocardial infarction Diabetes mellitus Hypertension Mother Cerebrovascular accident Social History Social History Smoking status: Never smoker Alcohol intake: never Substance use: never Lack of Transportation: No Lack of Food: Never True Current Housing: I Have Housing Concerned About Future Housing: No Difficulty Paying Gas/Electric Bills: No Difficulty Paying for Meds: No Currently Unemployed: No Education: Associate Degree Difficulty w/ Childcare or Family Care: No Spiritual care concerns: No Comments At time of signature, agree with nursing past medical, surgical, social and family history. There is no relevant family history pertinent to the presenting complaint Exam Narrative: GENERAL: Well-appearing, well-nourished, and in no acute distress. HEAD: Normocephalic EYES: PERRLA, conjunctivae clear ENT: Nares clear, turbinates edematous and erythematous, clear discharge. Mucous membranes moist. TM pearly mares with dull light reflex bilaterally; no tragal tenderness. Oropharynx not erythematous without lesions. Tonsils not enlarged and without exudate, no drooling, no hoarseness, no trismus, uvula midline. NECK: Supple. No lymphadenopathy CHEST: Clear to auscultation, breath sounds equal. No wheezing, rhonchi, rales, or stridor. No respiratory distress, speaks in full sentences. HEART: Regular rate and rhythm. No murmur heard. SKIN: Warm, dry, no rash. NEURO: Alert and oriented x3. PSYCH: Normal mood and affect Course Course Emergency Course: Patient is aware of diagnosis, understands and agrees to treatment plan. Anticipatory guidance given. Patient agrees to follow-up as directed and is aware of reasons to seek care at the emergency department. Portions of this record may have been created with voice recognition software Level of Care: Express Care Visit Vital Signs Vital signs: Vital Signs Temperature 98.3 F 01/15/24 15:18 Pulse Rate 56 L 01/15/24 15:18 Respiratory Rate 16 01/15/24 15:18 Blood Pressure 132/76 01/15/24 15:18 Pulse Oximetry 99 01/15/24 15:18 Temperature 98.3 F 01/15/24 15:18 Pulse Rate 56 L 01/15/24 15:18 Respiratory Rate 16 01/15/24 15:18 Blood Pressure 132/76 01/15/24 15:18 Pulse Oximetry 99 01/15/24 15:18 Reviewed. MDM - URI/Sore Throat MDM Narrative Medical decision making narrative: Differential diagnosis considered: Tracy virus, strep pharyngitis, allergic rhinitis, upper respiratory tract infection, sinusitis, rhinosinusitis, nasopharyngitis. viral
== END 2024-01-15 15:36 | disposition home or self-care (01) ==
PROVIDERS: Emergency Provider Nurse Practitioner
DX: J06.9 Acute upper respiratory infection, unspecified (principal)
CPT/HCPCS: 99213; G0463

== ENCOUNTER 2024-02-17 16:46 | Emergency (ER) | payer OTHER, SELFPAY ==
[2024-02-17 17:35] VITALS: BP 143/88; PULSE 60; RESP 15; TEMP 36.6; O2SAT 100
--- NOTE | 2024-02-17 17:39 | ED_ITS ---
HPI - URI/Sore Throat General Chief Complaint: Upper Respiratory Infection Stated Complaint: SORE THROAT Time Seen by Provider: 02/17/24 17:39 Source: patient Mode of arrival: ambulatory Limitations: no limitations History of Present Illness HPI Narrative: 33-year-old male presents with complaint of sore throat, fatigue, body aches, fever, chills for 3 days. No cough, congestion. Denies nausea vomiting diarrhea. All systems reviewed and negative except as noted above. Related Data Allergies Allergy/AdvReac Type Severity Reaction Status Date / Time No Known Allergies Allergy Verified 08/11/23 19:11 Review of Systems Review of Systems: CONSTITUTIONAL: Reports fatigue, fever, chills, or sweats. EYES: Denies visual changes, redness, or discharge. ENT: Denies rhinorrhea, congestion. Reports sore throat. Denies otalgia. CARDIOVASCULAR: Denies chest pain, palpitations, or edema. RESPIRATORY: Denies cough or dyspnea. GASTROINTESTINAL: Denies abdominal pain, nausea, vomiting, or diarrhea. GENITOURINARY: Denies dysuria or hematuria. SKIN: Denies rash or itching. MUSCULOSKELETAL: Denies back pain, joint pain. Reports myalgia. NEUROLOGIC: Denies headache, numbness, or weakness. PSYCHIATRIC: Denies anxiety or depression. All other systems reviewed are negative, except as documented in HPI. PMFSH Family History Family History Father Acute myocardial infarction Diabetes mellitus Hypertension Mother Cerebrovascular accident Social History Social History Smoking status: Never smoker Alcohol intake: never Substance use: never Lack of Transportation: No Lack of Food: Never True Current Housing: I Have Housing Concerned About Future Housing: No Difficulty Paying Gas/Electric Bills: No Difficulty Paying for Meds: No Currently Unemployed: No Education: Associate Degree Difficulty w/ Childcare or Family Care: No Spiritual care concerns: No Comments At time of signature, agree with nursing past medical, surgical, social and family history. There is no relevant family history pertinent to the presenting complaint. Exam Narrative: GENERAL: This is a well-nourished, well-developed patient, patient ill-appearing but in no acute distress. HEAD: normocephalic, atraumatic. EYES: PERRL. Sclera clear/white. Vision is grossly intact. EARS: External ears normal, auditory canals clear and without drainage, TMs normal without perforation. Hearing grossly intact. NOSE: External nose normal with no obvious nasal discharge, nares without redness, no rhinorrhea. THROAT: Mucous membranes moist, erythema with swelling, tonsils 1+ bilaterally without exudates. NECK: Neck supple, non-tender without lymphadenopathy, masses or thyromegaly. CARDIOVASCULAR: Regular rate and rhythm without murmurs, gallops, or rubs. RESPIRATORY: Clear to auscultation. Breath sounds equal bilaterally. No wheezes, rales, or rhonchi. SKIN: warm, Dry, intact with no suspicious lesions or rash, good texture and turgor. NEURO: awake, alert, and oriented to person, place and time. There were no obvious focal neurologic abnormalities. EXTREMITIES: No joint tenderness, effusion, or edema noted. Course Course Level of Care: Express Care Visit Vital Signs Vital signs: Vital Signs Temperature 36.6 C 02/17/24 17:35 Pulse Rate 60 02/17/24 17:35 Respiratory Rate 15 02/17/24 17:35 Blood Pressure 143/88 H 02/17/24 17:35 Pulse Oximetry 100 02/17/24 17:35 Oxygen Delivery Room Air 02/17/24 17:35 Temperature 36.6 C 02/17/24 17:35 Pulse Rate 60 02/17/24 17:35 Respiratory Rate 15 02/17/24 17:35 Blood Pressure 143/88 H 02/17/24 17:35 Pulse Oximetry 100 02/17/24 17:35 Oxygen Delivery Room Air 02/17/24 17:35 Reviewed MDM - URI/Sore Throat MDM Narrative Medical decision making narrative: Rapid strep negative. Did have difficulty getting swab, possibly inaccurate. Will treat patient with antibiotic today due to patient's symptoms and exam findings. Patient agrees with plan of care. Patient is aware of diagnosis, understands and agrees to treatment plan. Antici patory guidance given. Patient agrees to follow-up as directed and is aware of reasons to seek care at the emergency department. Portions of this record may have been created with voice recognition software Differential Diagnosis Differential diagnosis: Likely upper respiratory infection, sinusitis, viral infection and pharyngitis Discharge Plan Discharge Clinical Impression: Acute pharyngitis Patient Disposition: Home, Self-Care Condition: Stable Instructions: Antibiotic Form, Pharyngitis (ED) Additional Instructions: Your strep test was negative today. Due to your symptoms and exam findings I am prescribing an antibiotic today. Take antibiotic as prescribed until gone. Change toothbrush after taking antibiotic 24 hours. Take ibuprofen or Tylenol every 6-8 hours as needed for pain and fever. Drink at least 64 oz water a day. Follow-up with your primary care physician if symptoms are not improving. Prescriptions: New amoxicillin 500 mg capsule 500 mg PO Q12H 10 Days Qty: 20 0RF No Action methylprednisolone [Medrol ([place]on)] 4 mg tablets,dose pack See Rx Instructions .ROUTE .COMPLEX Qty: 21 0RF Rx Instructions: orally per package directions ipratropium bromide 21 mcg (0.03 %) spray,non-aerosol 2 spray NASAL TID PRN (Reason: nasal drainage) Qty: 30 0RF Rx Instructions: administer into each nostril Follow-up/Referrals: [facility], [Primary Care Provider] - Stand Alone Forms: Work/School Release IP Time of Disposition: 17:51
[2024-02-17 20:19] LABS: EDSTREPNEGPOS1 Negative (Negative)
== END 2024-02-17 17:57 | disposition home or self-care (01) ==
PROVIDERS: Emergency Provider Nurse Practitioner Family
DX: J02.0 Streptococcal pharyngitis (principal)
CPT/HCPCS: 87081; 87880; 99213; G0463

== ENCOUNTER 2024-04-14 20:12 | Emergency (ER) | payer OTHER, SELFPAY ==
--- NOTE | ~2024-04-14 | CT_ITS ---
EXAMINATION: CTA chest PE protocol DATE: 04/14/2024 23:36 FOREIGN LANGUAGES PROFESSOR INDICATION: Shortness of breath with chest pain and cough TECHNIQUE: Computed tomographic angiography (CTA) of the chest was performed with 100 mL Omnipaque-35 0 intravenous contrast. The dose-length product was 94967.06 mGy-cm. Maximum intensity projection 3D- reconstructions of the aorta and other arteries were constructed by the technologist on a separate wo rkstation. COMPARISON: None. FINDINGS: No filling defect within the main or proximal pulmonary arteries. The thoracic aorta is nonaneurysmal, without dissection. Calcified granuloma within the right upper lobe. The remainder of the lungs are clear. No acute compression fracture within the thoracic spine. No acute rib fracture. No lytic or blastic lesions. Within the upper abdomen: Small hiatal hernia. The gallbladder is surgically absent. IMPRESSION: No pulmonary embolus. No aortic dissection or aneurysmal dilatation. The lungs are clear. Reviewed, dictated and finalized at location A. IGN LANGUAGES PROFESSOR
--- NOTE | ~2024-04-14 | XR_ITS ---
CHEST RADIOGRAPH, PA AND LATERAL CLINICAL HISTORY: chest pain . COMPARISON: 10/22/2022 TECHNIQUE: PA and lateral views of the chest. FINDINGS The cardiomediastinal silhouette is unremarkable. The lungs are clear. Visualized osseous structures and soft tissues are unremarkable. IMPRESSION: No focal infiltrate or effusion. Reviewed, dictated and finalized at location A. ERY CLERK
[2024-04-14 20:20] VITALS: BP 144/83; PULSE 67; RESP 15; TEMP 36.6; O2SAT 100
[2024-04-14 20:39] LABS: Basophils Absolute Auto 0.1 K/mm3 (0.0-0.1); Basophils Percent Auto 1.1 % (0.2-1.2); Eosinophils Absolute Auto 0.2 K/mm3 (0-0.3); Eosinophils Percent Auto 3.5 % (0-4.4); Hematocrit 42.9 % (42.0-52.0); Hemoglobin 15.2 g/dL (14.0-18.0); Immature Granulocyte Absolute 0.02 K/mm3 (0.00-0.031); Immature Granulocyte Percent A 0.3 % (0-0.5); Lymphocytes Absolute Auto 2.71 K/mm3 (0.9-3.2); Lymphocytes Percent Auto 43.3 % (18.3-44.2); Mean Corpuscular HGB Conc 35.4 g/dl (32-36); Mean Corpuscular Hemoglobin 32.7 pg (26-34); Mean Corpuscular Volume 92.3 fl (80-100); Mean Platelet Volume 9.5 fl (7.4-10.4); Monocytes Absolute Auto 0.6 K/mm3 (0.1-0.6); Monocytes Percent Auto 9.3 % (2.6-8.5); Neutrophils Absolute Auto 2.7 K/mm3 (1.3-6.7); Neutrophils Percent Auto 42.5 % (45.5-73.1); Platelet Count Result 231 k/mm3 (150-375); Red Blood Count 4.65 M/mm3 (4.6-6.20); White Blood Count 6.3 K/mm3 (4.5-10.0)
[2024-04-14 20:50] LABS: Alanine Aminotransferase 28 U/L (6-50); Albumin Level 4.1 g/dL (3.5-5.1); Alkaline Phosphatase 85 U/L (38-126); Anion Gap 10 mmol/L (4-12); Aspartate Amino Transferase 28 U/L (17-59); Bilirubin,Total 1.4 mg/dL (0.2-1.3); Blood Urea Nitrogen 17 mg/dL (9-20); Calcium 8.6 mg/dL (8.4-10.2); Carbon Dioxide 25 mmol/L (22-30); Chloride 103 mmol/L (98-107); Estimated CRCL calculation 100 ml/min; Estimated Glomerular Filt Rate > 60; Glucose 85 mg/dL (65-110); Lipase 36 U/L (23-300); Potassium 3.9 mmol/L (3.4-5.0); Sodium 138 mmol/L (137-145)
[2024-04-14 20:52] LABS: Prothrombin Time 13.1 Seconds (11.1-14.7)
[2024-04-14 20:53] LABS: Partial Thromboplastin Time 26.2 Seconds (22.3-36.8)
[2024-04-14 21:02] LABS: Troponin I < 0.012 ng/mL (0.000-0.034)
--- NOTE | 2024-04-14 22:11 | ED_ITS ---
HPI - General Adult General Chief complaint: Shortness of Breath/Dyspnea Stated complaint: dyspnea Time Seen by Provider: 04/14/24 21:42 History of Present Illness HPI narrative: Patient is a 33-year-old male who presents to the emergency department this evening complaining of a cough productive of yellow-greenish sputum and shortness of breath for the past month. Patient also is complaining of exertional dyspnea and some chest pain that have worsened throughout the past few days. Denies any history of cardiovascular disease. Patient states that he is generally an active patient and this is unusual for him. Also states that he is getting more short of breath with exertion lately which is unusual for him. Patient states that this all started with an upper respiratory infection a month ago and he has gone through 2 courses of antibiotics to his primary care physician ordered him with no improvement of his symptoms. Patient also admits that he has been having some diarrheal illness on and off for the past month. Denies any sick contacts at home. Denies any fevers or chills. is present at bedside and states that a few years ago he had COVID which caused him to have a double pneumonia. Related Data Allergies Allergy/AdvReac Type Severity Reaction Status Date / Time No Known Allergies Allergy Verified 08/11/23 19:11 Review of Systems 2 Review of Systems: All systems are reviewed and are negative unless stated otherwise in the HPI. [facility] Family History Family History Father Acute myocardial infarction Diabetes mellitus Hypertension Mother Cerebrovascular accident Social History Social History Smoking status: Never smoker Alcohol intake: never Substance use: never Lack of Transportation: No Lack of Food: Never True Current Housing: I Have Housing Concerned About Future Housing: No Difficulty Paying Gas/Electric Bills: No Difficulty Paying for Meds: No Currently Unemployed: No Education: Associate Degree Difficulty w/ Childcare or Family Care: No Spiritual care concerns: No Exam 2 Narrative: General: Alert, awake, afebrile, in no acute distress. HEENT: PERRL, no rhinorrhea, no post nasal drip, oropharynx clear. Neck: Trachea midline, no JVD, no lymphadenopathy. Cardiovascular: Regular rate and rhythm, no murmurs, rubs or gallops, no peripheral edema. Respiratory: Clear to auscultation bilaterally, no tachypnea, no wheezing, no rhonchi, no rubs, no respiratory distress. Abdomen: Soft, nontender, nondistended, no rebound, no guarding, no peritoneal signs. Musculoskeletal: No joint swelling or deformity, normal muscle tone. Skin: No rashes or petechia, no signs of infection. Psychiatric: Alert and oriented, normal behavior and judgment for situation. Neurological: Alert and oriented to person, place, and time. Follows all commands. No focal deficits, speech is clear and fluent. Course Vital Signs Vital signs: Vital Signs Temperature 97.8 F 04/14/24 20:20 Pulse Rate 67 04/14/24 20:20 Respiratory Rate 15 04/14/24 20:20 Blood Pressure 144/83 H 04/14/24 20:20 Pulse Oximetry 100 04/14/24 20:20 Oxygen Delivery Room Air 04/14/24 20:20 Temperature 97.8 F 04/14/24 20:20 Pulse Rate 67 04/14/24 20:20 Respiratory Rate 15 04/14/24 20:20 Blood Pressure 144/83 H 04/14/24 20:20 Pulse Oximetry 100 04/14/24 20:20 Oxygen Delivery Room Air 04/14/24 22:50 Medical Decision Making MDM Narrative Medical decision making narrative: The patient was evaluated by myself in the emergency department. History is obtained from patient who is an independent historian and physical exam was performed. External medical records were reviewed at this time. IV was established and pertinent tests were ordered. EKG was obtained which revealed sinus rhythm rate of 62 beats per minute, no evidence of acute ischemia. EKG was independently interpreted by me and is currently pending official cardiology read. Laboratory results obtained revealing no acute process. Initial and 3 hour troponin both negative. BNP within normal limits. Imaging studies obtained included CXR which was independently interpreted by me revealing no acute process, which is pending final radiology interpretation. CT angiogram chest PE protocol was obtained at this time and independently interpreted by me revealing no acute process, no PE, no infection. Patient was informed of these findings at bedside. Differential diagnosis considerations include acute viral syndrome, infectious process such as pneumonia, coronary artery disease. Comorbidities impacting this visit include none. I have evaluated and discussed social determinants of health with the patient that could potentially impact subsequent diagnosis and treatment plans. On repeat assessment of the patient, reevaluation revealed that the patient is doing well and is in no acute distress. Patient symptoms have remained stable since he arrived to our emergency department. Repeat vital signs were all reviewed and noted to be stable. Differential diagnosis and treatment plan were discussed with the patient at bedside. Patient agrees with discussion and after shared medical decision making agrees with discharge. All questions were answered to the patient's satisfaction. Patient will follow up with his PCP in 3-5 days. Patient was also provided with a Cardiology referral and instructed to to set up a follow-up appointment if his symptoms persist. Patient was provided with strict return precautions and instructed to return to the emergency department if any new or worsening symptoms develop. The patient was discharged in stable condition. Vital Signs Vital Signs: Vital Signs Temperature 97.8 F 04/14/24 20:20 Pulse Rate 67 04/14/24 20:20 Respiratory Rate 15 04/14/24 20:20 Blood Pressure 144/83 H 04/14/24 20:20 Pulse Oximetry 100 04/14/24 20:20 Oxygen Delivery Room Air 04/14/24 20:20 Temperature 97.8 F 04/14/24 20:20 Pulse Rate 67 04/14/24 20:20 Respiratory Rate 15 04/14/24 20:20 Blood Pressure 144/83 H 04/14/24 20:20 Pulse Oximetry 100 04/14/24 20:20 Oxygen Delivery Room Air 04/14/24 22:50 Lab Data 04/14/24 20:33 04/14/24 20:33 Labs: Lab Results 04/14/24 04/14/24 Range/Units 20:33 23:20 WBC 6.3 (4.5-10.0) K/mm3 RBC 4.65 (4.6-6.20) M/mm3 Hgb 15.2 (14.0-18.0) g/dL Hct 42.9 (42.0-52.0) % MCV 92.3 (80-100) fl MCH 32.7 (26-34) pg MCHC 35.4 (32-36) g/dl RDW 12.0 (11.5-14.5) % Plt Count 231 (150-375) k/mm3 MPV 9.5 (7.4-10.4) fl Immature Gran % (Auto) 0.3 (0-0.5) % Neut % (Auto) 42.5 L (45.5-73.1) % Lymph % (Auto) 43.3 (18.3-44.2) % Ashe % (Auto) 9.3 H (2.6-8.5) % Eos % (Auto) 3.5 (0-4.4) % Baso % (Auto) 1.1 (0.2-1.2) % Lymph # (Auto) 2.71 (0.9-3.2) K/mm3 Ashe # (Auto) 0.6 (0.1-0.6) K/mm3 Eos # (Auto) 0.2 (0-0.3) K/mm3 Baso # (Auto) 0.1 (0.0-0.1) K/mm3 Abs Immat Gran (auto) 0.02 (0.00-0.031) K/mm3 Absolute Neuts (auto) 2.7 (1.3-6.7) K/mm3 Absolute Nucleated RBC 0.000 (0.0-0.012) K/mm3 Nucleated RBC % 0.0 (0.0-0.2) % PT 13.1 (11.1-14.7) Seconds INR 1.0 APTT 26.2 (22.3-36.8) Seconds Sodium 138 (137-145) mmol/L Potassium 3.9 (3.4-5.0) mmol/L Chloride 103 (98-107) mmol/L Carbon Dioxide 25 (22-30) mmol/L Anion Gap 10 (4-12) mmol/L BUN 17 (9-20) mg/dL Creatinine 1.01 (0.7-1.3) mg/dL Estim Creat Clear Calc 100 ml/min Estimated GFR > 60 (59 - ) Glucose 85 (65-110) mg/dL Calcium 8.6 (8.4-10.2) mg/dL Total Bilirubin 1.4 H (0.2-1.3) mg/dL AST 28 (17-59) U/L ALT 28 (6-50) U/L Alkaline Phosphatase 85 (38-126) U/L Troponin I < 0.012 < 0.012 (0.000-0.034) ng/mL NT-Pro-B Natriuret Pep 26 (19.9-100) pg/mL Total Protein 8.0 (6.3-8.2) g/dL Albumin 4.1 (3.5-5.1) g/dL Lipase 36 (23-300) U/L Influenza A (RT-PCR) Negative (Negative) Influenza B (RT-PCR) Negative (Negative) RSV (RT-PCR) Negative (Negative) SARS-CoV-2 RNA (RT-PCR) Negative (Negative) Discharge Plan Discharge Clinical Impression: Acute dyspnea, Chest pain Patient Disposition: Home, Self-Care Condition: Improved Instructions: Antibiotic Form, Chest Pain (DC), Shortness of Breath (ED) Additional Instructions: Please follow-up with your family doctor within the next 3-5 days. Return to the emergency department if any new or worsening symptoms develop. You also provided with a Cardiology referral and instructed to call to set up a follow-up appointment. Patient Language: Malian Prescriptions: No Action methylprednisolone [Medrol (Cameron)] 4 mg tablets,dose pack See Rx Instructions .ROUTE .COMPLEX Qty: 21 0RF Rx Instructions: orally per package directions ipratropium bromide 21 mcg (0.03 %) spray,non-aerosol 2 spray NASAL TID PRN (Reason: nasal drainage) Qty: 30 0RF Rx Instructions: administer into each nostril amoxicillin 500 mg capsule 500 mg PO Q12H 10 Days Qty: 20 0RF Follow-up/Referrals: Juan Vines MD [Physician] - 3 Days HANNIBAL, [Primary Care Provider] - 1 Week Time of Disposition: 00:05
[2024-04-14 22:29] LABS: NT Pro B Type Natriuretic Pept 26 pg/mL (19.9-100)
[2024-04-14 23:28] LABS: Influenza A QL RT-PCR Negative (Negative); Influenza B QL RT-PCR Negative (Negative); RSV RNA, RT-PCR Negative (Negative); SARS-CoV-2 RNA PCR Negative (Negative)
[2024-04-14 23:49] LABS: Troponin I < 0.012 ng/mL (0.000-0.034)
[2024-04-15 00:20] VITALS: BP 120/76; PULSE 57; RESP 14; O2SAT 100
--- OUTSIDE RECORDS SUMMARY | 2024-04-16 20:34 | XMS_ITS | Clinical Summary ---
Author Organization [facility] Address [address] [place] [address] Care Team Providers Care Degreaser Operator Name Role Phone [facility] Unavailable [phone] Al Gay MD Primary Care Provider [phone] Allergies No known active allergies Medications ascorbic acid (VITAMIN C) 500 mg tablet,chewable Acti ve cyanocobalamin (Vitamin B-12) 1,000 mcg tablet Take 1,000 mcg by mouth daily Active sildenafiL (VIAGRA) 25 mg tablet Take 1 tablet (25 mg total) by mouth as needed for erectile dysfunction (1-4 tabs PO, prn) 1-4 tabs start with 1 tab 30 tablet 8 2 Active Active Problems Problem Noted Date Diagnosed Date Pneumonia due to COVID-19 virus 11/05/2020 Assessment & Plan (11/16/2020 2:24 PM CDT): ?? Prescription sent for benzonatate 100 mg by mouth three times daily as needed for cough. Self-isolate 10 days from start of symptoms ?? Increase fluid intake ?? Report new or worsening symptoms ?? Warning signs warranting immediate medical care: chest pain, trouble breathing, worsening shortness of breath Acute respiratory failure with hypoxia (CMS/HCC) 11/05/2020 Elevated LFTs Surgical History Surgery Date Site/Laterality Comments SHOULDER ARTHROSCOPY 03/25/2016 - 03/24/2017 Right MYRINGOTOMY W/ TUBES toddler Medical History Medical History Date Comments Covid-19 10/2020 Pneumonia 10/2020 r/t covid 19 see epic notes Right upper quadrant pain 2 see ED notes Elevated LFTs Respiratory failure with hyp oxia (CMS/HCC) (HCC) 10/2020 admitted to hospital x 4 day s r/t covid and pneumonia tx oxygen during hospital stay and medications then released see epic notes Family History Medical History Relation Name Comments No Known Problems Father No Known Problems Mother Relation Name Status Comments Father Alive Mother Alive Social History Tobacco Use Types Packs/Day Years Used Date Smoking Tobacco: Never Smokeless Tobacco: Never AUDIT-C Answer Date Recorded Q1: How often do you have a drink containing alc ohol? Monthly or less 11/06/2021 Q2: How many drinks containi ng alcohol do you have on a typical day when you are drinking? 3 or 4 11/06/2021 Q3: How often do you have si x or more drinks on one occasion? Never 11/06/2021 Sex and Gender Information Value Date Recorded Sex Assigned at Not on file Legal Sex Male 10:05 AM CDT Gender Identity Not on file Sexual Orientation Not on file Obstetrics History Last Filed Vital Signs Vital Sign Reading Time Taken Comments Blood Pressure 128/74 11/06/2021 10:55 AM CDT Pulse 66 11/06/2021 10:55 AM CDT Temperature 36.6 ??C (97.8 ??F) 11/06/2021 10:40 AM C DT Respiratory Rate 18 11/06/2021 10:55 AM CDT Oxygen Saturation 98% 11/06/2021 10:55 AM CDT Inhaled Oxygen Concentration - - Weight 102.2 kg (225 lb 5 oz) 10/07/2021 9:48 AM CDT Height 182.9 cm (6') 10/07/2021 9:48 AM CDT Body Mass Index 30.56 10/07/2021 9:48 AM CDT Plan of Treatment Health Maintenance Due Date Last Done Comments Depression Screening 1989 DTaP/Tdap/Td Vaccine (1 - Tdap) 2000 Varicella Vaccines (1 of 2 - 13+ 2-dose series) 2002 Hepatitis B Screening 2007 Regular Well Visit/Exam 18-64 2007 Covid-19 Vaccine (3 2023-2 5 season) 2023 01/07/2021, 12/12/2020 Influenza Vaccine (#1) 2023 Hepatitis C Screening Completed 11/09/2020 HPV Vaccines Aged Out No longer eligi ble based on patient's age to complete this topic Pneumococcal vaccine <65 Aged Out No longer eligible based on patient's age to complete this topic Procedures Procedure Name Priority Date/Time Associated Diagnosis Comments HEPATITIS PANEL, ACUTE Routine 11/09/2020 12:45 PM CDT from Last 3 Months or Most Recently Relevant to Health Maintenance Results * Hepatitis panel, acute (11/09/2020 12:45 PM CDT) Hep A IgM Nonreactive Nonreactive JESSENIA RICE Comment: Interpretive Data: If Hep A IgM Ab is reported as Equivocal, a new sample should be drawn in two weeks for testing. Current interpretive data was last revised on 19. Hep B core IgM Nonreactive Nonreactive JESSENIA Comment: Interpretive Data If HepB Core IgM Ab is reported as Equivocal, a new sample should be drawn in two weeks for testing. Current interpretive data was last revised on 19. Hep C Ab Nonreactive Nonreactive JESSENIA Comment: Interpretive Data Nonreactive: Antibodies to HCV not detected. Does NOT exclude the possibility of recent exposure to HCV. Equivocal: Equivocal for HCV antibodies. Supplemental molecular testing will be automatically performed to determine infection status in accordance with current CDC screening recommendations. ?? Reactive: Positive for HCV antibodies. ??This may represent current or past HCV infection. Supplemental molecular testing will be automatically performed to determine ??current infection status in accordance with current CDC screening recommendations. Interpretive data was last revised on 2019. HepBsAg Nonreactive Nonreactive JESSENIA Blood 11/09/2020 12:4 5 PM CDT 11/09/2020 3:10 PM CDT us Deshaun Garcia MD LAB MICROBIOLOGY - GENERAL OR DERABLES Final Result JESSENIA [address] [facility] Department [place] [address] from Last 3 Months or Most Recently Relevant to Health Maintenance Insurance Member Subscriber Plan / Payer (Ef fective 2020-Present) Name:Zeke Veloz Relation to Subscriber:Self Name:Zeke Veloz Payer ID:[id number] (NAIC) Group ID:Not on file Type: Address: [place] [phone] Member Subscriber Plan / Payer (Ef fective 2020-Present) Name:Zeke Veloz Relation to Subscriber:Self Name:Zeke Veloz Payer ID:[id number] (NAIC) Group ID:[id number] Type:Urgent Career Address: [place] [phone] Advance Directives For more information, please contact: [phone] * Full Code (Latest Code Status on File) Date Activated Date Inactivated Comments 11/05/2020 7:00 AM 11/10/2020 5:06 PM Care Teams Degreaser Operator Relationship Specialty Start Date End Date Al Gay MD [address] [place] [address] PCP - General Internal Medicine 02/27/23 [facility] [address] [place] [address] 12/06/21
--- OUTSIDE RECORDS SUMMARY | 2024-04-16 20:34 | XMS_ITS | Referral Summary ---
Author Organization [facility] Address [address] [place] [address] Care Team Providers Care Special Warfare Operator Name Role Phone [facility] Unavailable [phone] Al Gay MD Primary Care Provider [phone] Allergies No known active allergies Medications ascorbic [...] failure with hypoxia (CMS/HCC) 11/05/2020 Elevated LFTs Social History Tobacco Use Types Packs/Day Years [...] on file Sexual Orientation Not on file Last Filed Vital Signs Vital Sign Reading [...] 10/07/2021 9:48 AM CDT Plan of Treatment Not on file Procedures Procedure Name Priority Date/Time Associated Diagnosis Comments HEPATITIS PANEL, ACUTE Routine 11/09/2020 12:45 PM CDT from Last 3 Months or Most Recently Relevant to Health Maintenance Results * Hepatitis panel, acute (11/09/2020 12:45 PM CDT) Hep A IgM Nonreactive Nonreactive JESSENIA Comment: Interpretive Data: If Hep A IgM [...] revised on 2019. HepBsAg Nonreactive Nonreactive JESSENIA RICE Blood 11/09/2020 12:4 5 PM CDT 11/09/2020 3:10 PM CDT us Deshaun Garcia MD LAB MICROBIOLOGY - GENERAL OR DERABLES Final Result JESSENIA RICE [address] [facility] Department [place] [address] from Last 3 Months or Most Recently Relevant to Health Maintenance Insurance [facility] CLAIMS [facility] Advance Directives For more information, please contact: [phone] * Full Code (Latest Code Status on File) Date Activated Date Inactivated Comments 11/05/2020 7:00 AM 11/10/2020 5:06 PM Care Teams Special Warfare Operator Relationship Specialty Start Date End Date Al Gay MD [address] [place] [address] PCP - General Internal Medicine 02/27/23 [facility] [address] [place] [address] 12/06/21
--- OUTSIDE RECORDS SUMMARY | 2024-04-16 20:43 | XMS_ITS | Continuity of Care Document ---
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 It does not include entries that were removed or entered in error. 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 DoD Back Muscle Spasm Active Condition DoD herpes simplex acute gingivostomatitis Inactive Condition DoD visit for: issue medical certificate Inactive Condition DoD upper respiratory infection acute Inactive Condition DoD visit for: occupational health / fitness exam Active Condition DoD cellulitis of the left thumb Inactive Condition DoD Need For Vaccination Typhoid Inactive Condition DoD visit for: services physical Active Condition DoD gastroenteritis Inactive Condition DoD Need For Prophylactic Antibiotics Inactive Condition DoD visit for: examination of subpopulation Active Condition DoD Need For Vaccination Yellow Fever Inactive Condition DoD Need For Vaccination Hepatitis A And Hepatitis B Inactive Condition DoD Need For Vaccination Polio Inactivated Inactive Condition DoD astigmatism regular Active Condition Do D refractive error - myopia Active Condition DoD visit for: services physical accession Active Condition DoD visit for: ears / hearing exam Active Condition DoD Patient Education - Injury Prevention Active Condition DoD Intervention And Counseling On Cessation Of Tobacco Use Active Condition DoD Need For Vaccination Against Bacterial Diseases Inactive Condition DoD Need For Vaccination Pneumococcal Inactive Condition DoD Need For Vaccination Against DTP Inactive Condition DoD visit for: screening exam pulmonary tuberculosis Inactive Condition DoD Blood Typing Inactive Condition DoD Medications Combined list of outpatient medications from Department of Defense and Veterans Affairs facilities.Medications provided include 1) outpatient medications from the last 15 months, and 2) patient-reported medications. Medication Details Route Status Patient Instructions Prescription Expires Prescription Number Last Dispense Date Ordering Provider Order Date Order Qty Source benzoyl peroxide 5% topical liquid USE CHEST, ABDOMEN, AND ARM WASH DAILY. LATHER IN SKIN FOR 3 TO 5 MINUTES IN SHOWER THEN RINSE OFF., # 711 g, 11 total refill(s ), Acute Discont inued 09/12/2022 711.0 Ambulat ory Pharmac y benzoyl peroxide 5% topical wash See Instruct ions, use as face, neck, chest, back, and bilatera l arm wash daily, # 227 g, 11 total refill(s ), Maintena dce, Pharmacy : [facility] Discont inued 05/27/2023 227.0 0055C-3 [facility] Osmar clindamycin 1% topical lotion 1 appl(s), Topical, BID, # 60 mL, 11 total refill(s ), Maintena [facility], Pharmacy : [facility] Topica l (on the skin) Discont inued 05/27/2023 60.0 0055C-3 [facility] Osmar CLINDAMYCIN HCL (CLINDAMYCI N HCL), 300MG, CAPSULE, ORAL, AUROBINDO PHARM, 100 ea. BOTTLE Active [id number] 2023 21 Pharmac y Data Transac tion Service Facilit y doxycycline 20 mg oral tablet See Instruct ions, 2 tab(s) Oral daily with food, # 180 tab(s), 1 total refill(s ), Maintena [facility], Pharmacy : [facility] Discont inued 05/27/2023 180.0 0055C-[address] [place] [address] Osmar emollients, topical cream APPLY TWICE DAILY TO ARMS DIRECTED , # 453 g, 1 total refill(s ), Acute Complet ed 11/22/2022 453.0 Ambulat ory Pharmac y FLUoxetine 10 mg oral capsule 1 cap(s), Oral, Daily, # 30 cap(s), 0 total refill(s ), Maintena [facility], Pharmacy : [facility] Oral (given by mouth) Ordered 01/11/2024 30.0 0055C -[address] [place] [address] Osmar lidocaine 2% mucous membrane solution 5 mL, Topical, QID(ACHS ), PRN mouth sore pain, # 100 mL, 1 total refill(s ), Acute, Pharmacy : [facility] Topica l (on the skin) Ordered 07/23/2024 100.0 0055C -3 [facility] Osmar lidocaine 5% topical film APPLY 1 PATCH TO AFFECTED AREA DIRECTED FOR NO LONGER THAN 12 HOURS PER DAY, # 60 EA, 2 total refill(s ), Acute Complet ed 10/15/2022 60.0 Ambulat ory Pharmac y Orabase with Benzocaine 20% mucous membrane paste 1 appl(s), Topical, BID, # 15 g, 1 total refill(s ), Acute, 07/23/24 12:00:00 AM CDT, Pharmacy : [facility] Topica l (on the skin) Ordered 07/23/2024 15.0 0055C -3 [facility] Osmar sildenafil 25 mg oral tablet TAKE ONE TABLET BY MOUTH ONE HOUR PRIOR TO INTERCOU RSE, # 30 EA, 3 total refill(s ), Acute Complet ed 12/13/2022 30.0 Ambulat ory Pharmac y triamcinolo ne 0.1% mucous membrane paste 1 appl(s), Oral, TID, apply 2-4 times daily until healed, # 5 g, 0 total refill(s ), Acute, Pharmacy : [facility] Oral (given by mouth) Complet ed 01/10/2023 5.0 0055C-3 [facility] Allergies, Adverse Reactions, Alerts Combined list of allergies from Department of Defense and Veterans Affairs facilities. It does not include entries that were removed or entered in error. Substance Category Reaction Severity Reaction type Status Date Reported Comments Source No Known Allergies Drug allergy (disorder) active 10/11/2010 [facility] Immunizations Combined list of available immunizations from the Department of Defense and Veterans Affairs facilities. 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 Status Comments Source tetanus-dipht h toxoids (Td) adult/adol 2023 [id number] HOWIEUZZI Shoul mason, left (delt oid) [id number] sanofi pasteur complet ed tetanus-d iphth toxoids (Td) adult/ado l 07/25/23 Given 0055C-3 [facility] Osmar influenza, injectable, quadrivalent- pf 2021 [id number] 150 sanofi pasteur complet ed influenza , injectabl e, quadrival ent-pf 03/07/22 Given Ambulat ory Pharmac y Influenza, injectable, quadrivalent, preservative free 0 2021 [id number] 150 Sanofi Pasteur (PMC) complet ed Influenza , injectabl e, quadrival ent, preservat padmini free DoD COVID Vaccine Pfizer 2020 TRS 208 PFIZER complet ed COVID Vaccine Pfizer 01/07/21 Given Ambulat ory Pharmac y COVID-19, mRNA, LNP-S, PF, 30 mcg/0.3 mL dose 2020 OSMANY, [employer] (PFR) Not Given COVID-19, mRNA, LNP-S, PF, 30 mcg/0.3 mL dose DoD SARS-COV-2 (COVID-19) vaccine, mRNA, spike protein, LNP, preservative free, 30 mcg/0.3mL dose 0 2020 Unknown, Provider TRS 208 Phenomix (PFR) complet ed SARS-COV- 2 (COVID-19 ) vaccine, mRNA, spike protein, LNP, preservat padmini free, 30 mcg/0.3mL dose DoD COVID Vaccine Pfizer 2020 TRS 208 [facility] complet ed COVID Vaccine Pfizer 12/12/20 Given Ambulat ory Pharmac y COVID-19, mRNA, LNP-S, PF, 30 mcg/0.3 mL dose 2020 TOM, [employer] (PFR) Not Given COVID-19, mRNA, LNP-S, PF, 30 mcg/0.3 mL dose DoD SARS-COV-2 (COVID-19) vaccine, mRNA, spike protein, LNP, preservative free, 30 mcg/0.3mL dose 0 2020 Unknown, Provider TRS 208 Phenomix (PFR) complet ed SARS-COV- 2 (COVID-19 ) vaccine, mRNA, spike protein, LNP, preservat padmini free, 30 mcg/0.3mL dose DoD meningococcal A,C,Y,W-135 (MCV4P) 2017 Josep bliss Arm [id number] 114 sanofi pasteur complet ed meningoco ccal A,C,Y,W-1 35 (MCV4P) 04/17/17 Given Ambulat ory Pharmac y meningococcal polysaccharid e (groups A, C, Y and W-135) diphtheria toxoid conjugate vaccine (MCV4P) 1 2017 ANN MARIE RIVERA [id number] 114 Sanofi Pasteur (PMC) complet ed meningoco ccal polysacch aride (groups A, C, Y and W-135) diphtheri a toxoid conjugate vaccine (MCV4P) DoD Influenza, inj, MDCK, quadrivalent- pf 2016 [facility] [id number] Seqirus complet ed Influenza , inj, MDCK, quadrival ent-pf 02/07/17 Given Ambulat ory Pharmac y Influenza, injectable, Madin [place] Canine Kidney, preservative free, quadrivalent 1 2016 Unknown, Provider [id number] 171 Seqirus (SEQ) complet ed Influenza , injectabl e, Madin [place] Canine Kidney, preservat padmini free, quadrival ent DoD Moldovan Encephalitis IM 2016 [facility] t Arm [id number] 3E 134 Valneva complet ed Mold[place] Encephali tis IM 11/19/16 Given Ambulat ory Pharmac y Mold[place] Encephalitis vaccine for intramuscular administratio n 3 2016 ANN MARIE RIVERA [id number] 3E 134 [employer] (INT) complet ed Mold[place] Encephali tis vaccine for intramusc ular administr ation DoD varicella virus vaccine 0 2016 21 () Not Given varicella virus vaccine DoD influenza, seasonal, injectable-pf 2015 [id number] 1A 140 Seqirus complet ed influenza , seasonal, injectabl e-pf 01/20/16 Given Ambulat ory Pharmac y influenza, injectable, quadrivalent 2015 Body, whole [id number] 1A 158 Seqirus complet ed influenza , injectabl e, quadrival ent 01/20/16 Given Ambulat ory Pharmac y Influenza, seasonal, injectable, preservative free 0 2015 [id number] 1A 140 Seqirus (SEQ) complet ed Influenza , seasonal, injectabl e, preservat padmini free DoD influenza, injectable, quadrivalent, contains preservative 0 2015 [id number] 1A 158 Seqirus (SEQ) complet ed influenza , injectabl e, quadrival ent, contains preservat padmini DoD influenza, live, intranasal,qu adrivalent 2014 [id number] 149 [employer] comple t ed influenza , live, intranasa l,quadriv alent 01/18/15 Given Ambulat ory Pharmac y influenza, live, intranasal, quadrivalent 0 2014 DUANE VARGAS [id number] 149 What[employer] Inc. (MED) complet ed influenza , live, intranasa l, quadrival ent DoD Moldovan Encephalitis IM 2014 zzLef t Arm [id number] 4E 134 Valneva complet ed [place] Encephali tis IM 08/18/14 Given Ambulat ory Pharmac y Mold[place] Encephalitis vaccine for intramuscular administratio n 2 2014 LILIAN KING [id number] 4E 134 [employer] (INT) complet ed [place] Encephali tis vaccine for intramusc ular administr ation DoD Mold[place] Encephalitis IM 2014 zzLef t Arm [id number] 0E 134 Valneva complet ed [place] Encephali tis IM 05/11/14 Given Ambulat ory Pharmac y Moldovan Encephalitis vaccine for intramuscular administratio n 1 2014 ZOEY CASSIDY [id number] 0E 134 [employer] (INT) complet ed [place] Encephali tis vaccine for intramusc ular administr ation DoD influenza, live, intranasal,qu adrivalent 2013 [id number] 149 Mediune Inc comple t ed influenza , live, intranasa l,quadriv alent 01/15/14 Given Ambulat ory Pharmac y influenza, live, intranasal, quadrivalent 0 2013 Unknown, Provider [id number] 149 [employer] (MED) complet ed influenza , live, intranasa l, quadrival ent DoD typhoid Vi capsular polysaccharid e vac 2013 zzLef t Arm [id number] 101 complet ed typhoid Vi capsular polysacch aride vac 08/06/13 Given Ambulat ory Pharmac y typhoid Vi capsular polysaccharid e vaccine 0 2013 [id number] 101 Transcribed (TRS) complet ed typhoid Vi capsular polysacch aride vaccine DoD influenza, live, intranasal,qu adrivalent 2012 [id number] 149 sanofi pasteur complet ed influenza , live, intranasa l,quadriv alent 01/28/13 Given Ambulat ory Pharmac y influenza, live, intranasal, quadrivalent 0 2012 [id number] 149 Sanofi Pasteur ([facility]) complet ed influenza , live, intranasa l, quadrival ent DoD vaccinia (smallpox) vaccine 2012 [id number] 75 Sanofi Pasteur Incorporated complet ed vaccinia (smallpox ) vaccine 08/27/12 Given Ambulat ory Pharmac y anthrax vaccine 2012 [id number] 24 complet ed anthrax vaccine 08/27/12 Given Ambulat ory Pharmac y anthrax vaccine 1 2012 [id number] 24 (EBS) complet ed anthrax vaccine DoD vaccinia (smallpox) vaccine 0 2012 [id number] 75 (FABIAN) complet ed vaccinia (smallpox ) vaccine DoD vaccinia (smallpox) vaccine 2012 [id number] 75 Sanofi Pasteur Incorporated complet ed vaccinia (smallpox ) vaccine 08/26/12 Given Ambulat ory Pharmac y vaccinia (smallpox) vaccine 0 2012 [id number] 75 (FABIAN) complet ed vaccinia (smallpox ) vaccine DoD influenza virus vaccine, live 2011 UNK 111 [employer] comple t ed influenza virus vaccine, live 12/18/11 Given Ambulat ory Pharmac y influenza virus vaccine, live, attenuated, for intranasal use 0 2011 UNK 111 What[employer]. (MED) complet ed influenza virus vaccine, live, attenuate d, for intranasa l use DoD yellow fever vaccine 2011 UNK 37 Emergent [employer] complet ed yellow fever vaccine 07/20/11 Given Ambulat ory Pharmac y yellow fever vaccine 0 2011 UNK 37 [employer] [place] ([facility]) complet ed yellow fever vaccine DoD typhoid Vi capsular polysaccharid e vac 2011 [id number] 101 sanofi pasteur complet ed typhoid Vi capsular polysacch aride vac 07/16/11 Given Ambulat ory Pharmac y typhoid Vi capsular polysaccharid e vaccine 1 2011 [id number] 101 Sanofi Pasteur (PMC) complet ed typhoid Vi capsular polysacch aride vaccine DoD hepatitis A-hepatitis B vaccine 2011 UNK 104 GlaxoSmithKli ne complet ed hepatitis A-hepatit is B vaccine 06/28/11 Given Ambulat ory Pharmac y measles and rubella virus vaccine 0 2011 04 () Not Given measles and rubella virus vaccine DoD hepatitis A and hepatitis B vaccine 3 2011 UNK 104 SmithKline (SKB) complet ed hepatitis A and hepatitis B vaccine DoD hepatitis A-hepatitis B vaccine 2010 [id number] 3CA 104 GlaxoSmithKli ne complet ed hepatitis A-hepatit is B vaccine 11/10/10 Given Ambulat ory Pharmac y poliovirus vaccine, inactivated 2010 [id number] 10 sanofi pasteur complet ed polioviru s vaccine, inactivat ed 11/10/10 Given Ambulat ory Pharmac y poliovirus vaccine, inactivated 0 2010 C4416-0 10 Sanofi Pasteur (PMC) complet ed polioviru s vaccine, inactivat ed DoD hepatitis A and hepatitis B vaccine 2 2010 [id number] 3CA 104 SmithKline (SKB) complet ed hepatitis A and hepatitis B vaccine DoD pneumococcal 13-valent conjugate (PCV13) 2010 [id number] 133 Merck & Company Inc complet ed pneumococ sonal 13-valent conjugate (PCV13) 10/11/10 Given Ambulat ory Pharmac y tetanus, diphtheria, acellular pertu is 2010 [id number] 9CA 115 GlaxoSmithKli ne complet ed tetanus, diphtheri a, acellular pertussis 10/11/10 Given Ambulat ory Pharmac y meningococcal A,C,Y,W-135 (MCV4P) 2010 [id number] 114 sanofi pasteur complet ed meningoco ccal A,C,Y,W-1 35 (MCV4P) 10/11/10 Given Ambulat ory Pharmac y hepatitis A-hepatitis B vaccine 2010 [id number] 3CA 104 GlaxoSmithKli ne complet ed hepatitis A-hepatit is B vaccine 10/11/10 Given Ambulat ory Pharmac y hepatitis A and hepatitis B vaccine 1 2010 [id number] 3CA 104 SmithKline (SKB) complet ed hepatitis A and hepatitis B vaccine DoD meningococcal polysaccharid e (groups A, C, Y and W-135) diphtheria toxoid conjugate vaccine (MCV4P) 0 2010 [id number] 114 Sanofi Pasteur (PMC) complet ed meningoco ccal polysacch aride (groups A, C, Y and W-135) diphtheri a toxoid conjugate vaccine (MCV4P) DoD tetanus toxoid, reduced diphtheria toxoid, and acellular pertu is vaccine, adsorbed 0 2010 [id number] 9CA 115 SmithKline (SKB) complet ed tetanus toxoid, reduced diphtheri a toxoid, and acellular pertussis vaccine, adsorbed DoD pneumococcal conjugate vaccine, 13 valent 0 2010 [id number] 133 Merck (MSD) complet ed pneumococ sonal conjugate vaccine, 13 valent DoD Results Combined list of recent chemistry, hematology and other laboratory results from Department of Defense and Veterans Affairs, ranging from 15 months to all on record, depending upon the facility. Order Name Results Value Reference Range Date Interpretation Specimen Comments Source Chemistr y Triglyceri santana 96 mg/dL 7 - 149 07/28 N Interpretiv e Data: AGES 0-9: Desirable: < 75 mg/dL Borderline High: 75-99 mg/dL High: >/= 100 mg/dL AGES 10-19: Desirable: < 90 mg/dL Borderline High: 90-129 mg/dL High: >/= 130 mg/dL ADULTS: Desirable: < 150 mg/dL Borderline High: 150-199 mg/dL High: >/= 240 mg/dL Very High: >/= 500 mg/dL Amb[facility] Pharmacy Chemistr y LDL/HDL 2 07/28 [facility] Chemistr y LDL 91 mg/dL 100 - 130 07/28 L Interpretiv e Data: AGES 0-19: Desirable: < 110 mg/dL Borderline High: 110-129 mg/dL High: >/= 130 mg/dL ADULTS: Desirable: <100 mg/dL Near/above optimal: 100-130 mg/dL Borderline High: 131-159 mg/dL High: 160-189 mg/dL Very High: e190 mg/dL [facility] Chemistr y HDL Cholestero l 38 mg/dL 40 - 59 07/28 L Interpretiv e Data: HDL (HIGH DENSITY LIPOPROTEIN ): ADULTS: Low: < 40 mg/dL High: >/= 60 mg/dL AGES 0 -19: Low: < 40 mg/dL Borderline Low: 40 - 45 mg/dL Acceptable: > 45 mg/dL [facility] Pharm[facility] Chemistr y Cholestero l Total 136 mg/dL 07/28 N Interpretiv e Data: According to the [place] [employer] : AGES 0-19: Desirable: < 170 mg/dL Borderline High: 170-199 mg/dL High Blood Cholesterol : >/= 200 mg/dL ADULTS: Desirable < 200 mg/dL Borderline High: 200-239 mg/dL High Blood Cholesterol : >/= 240 mg/dL [facility] Chemistr y Chol/HDL 4 mg/dL 07/28 [facility] Chemistr y eGFR CKD EPI 101 mL/min/1 .73_m2 07/14 Interpretiv e Data: Estimated Glomerular Filtration Rate (eGFR) calculated using the 2020 Chronic Kidney Disease-Epi demiology (CKD-EPI) Collaborati on creatinine equation; units of measure are mL/min/1.73 m2. Results are only valid for adults (>=18 years) whose serum creatinine is in steady state. eGFR calculation s are not valid for patients with acute kidney injury and for patients on dialysis. Creatinine- based estimates of kidney function may also be inaccurate in patients with reduced creatinine generation due to decreased muscle mass (e.g., malnutritio n, severe hypoalbumin emia, sarcopenia, chronic neuromuscul ar disease, amputations , severe heart failure or liver disease) and in patients with increased creatinine generation due to increased muscle mass (e.g., muscle builders, anabolic steroids) or increased dietary intake. CKD is diagnosed based on abnormaliti es of kidney structure or function, present for >3 months, with implication s for health and disease. CKD is classified and staged based on cause, eGFR and albuminuria (quantified as urine albumin to creatinine ratio). An eGFR >60 mL/min/1.73 m2 in the absence of increased urine albumin excretion or structural abnormaliti es does not CKD. eGFR provides only an estimate of measured GFR within +/- 30% for most patients. As mentioned, nutritional status and muscle mass, among many factors, may lead to inaccuracy in the estimate. Consider ordering the creatinine- cystatin C panel if better accuracy is needed for clinical decision-garret conte. eGFR (mL/min/1.7 3 m2) CKD stage Interpretat ion Normal 60-89 Mild decrease 45-59 Mild to moderate decrease 30-44 Moderate to severe decrease 15-29 Severe decrease <15 Kidney failure [facility] Hematolo gy WBC 4.4 x10^3/mc L 4.0 - 11.0103 07/14 N [facility] Hematolo gy RDW 12.0 % 11.0 - 14.9 07/14 N [facility] Hematolo gy RBC 4.6 x10^6/mc L 4.0 - 5.6106 07/14 N [facility] Hematolo gy Platelets 207.0 x10^3/mc L 150.0 - 450.0103 07/14 N [facility] Hematolo gy MPV 9.9 fL 7.4 - 10.4 07/14 N [facility] Hematolo gy MCV 91 fL 80 - 97 07/14 N [facility] Hematolo gy MCHC 35.7 g/dL 33.0 - 36.5 07/14 N [facility] Hematolo gy MCH 32 pg 28 - 33 07/14 N [facility] Hematolo gy Hemoglobin 14.8 g/dL 13.0 - 16.3 07/14 N [facility] Hematolo gy Hematocrit 41 % 40 - 49 07/14 N [facility] Hematolo gy Differenti al? Auto (07/15/23 8:27 AM) 07/14 N [facility] Chemistr y T4 Free 1.15 ng/dL 0.93 - 1.70 07/14 N Interpretiv e Data: METHODOLOGY : Testing performed by electrochem iluminescen t immunoassay (ECLIA). [facility] Chemistr y CRP 0.16 mg/dL 0.02 - 0.50 07/14 N [facility] Chemistr y Ferritin Lvl 46.30 ng/mL 30.00 - 400.00 07/14 N Interpretiv e Data: METHODOLOGY : Testing performed by electrochem iluminescen t immunoassay (ECLIA). [facility] Hematolo gy ESR Auto Plus 13 mm/h 0 - 15 07/14 N Interpretiv e Data: The clinical significanc e of an ESR result obtained from an abnormal sample, including but not limited to icteric, lipemic, cold agglutinins , anemic conditions, low hemoglobin concentrati ons, hemolysis, or any pathologica l condition that interferes or prevents a clear red cell to plasma interface is subject to a high degree of variability . [facility] Chemistr y TSH 3.820 mIU/L 0.270 - 4.200 07/14 N Interpretiv e Data: Recommend: TPO/Thyrope roxidase Antibody when TSH result is > 4.2 uIU/mL [facility] Chemistr y Testostero ne Total 426.0 ng/dL 249.0 - 836.0 07/14 N [facility] Chemistr y Protein Total 7.1 g/dL 6.4 - 8.3 07/14 N [facility] Chemistr y Sodium 140 mmol/L 136 - 145 07/14 N [facility] Chemistr y Potassium Lvl 4.2 mmol/L 3.5 - 5.1 07/14 N [facility] Chemistr y Glucose Lvl 101 mg/dL 74 - 99 07/14 H [facility] Chemistr y Creatinine Level 1.00 mg/dL 0.72 - 1.25 07/14 N [facility] Chemistr y CO2 26 mmol/L 22 - 29 07/14 N [facility] Chemistr y Chloride 107 mmol/L 98 - 107 07/14 N [facility] Chemistr y Calcium 9.1 mg/dL 8.4 - 10.2 07/14 N [facility] Chemistr y BUN/Creat Ratio 14 mg/dL 12 - 20 07/14 N [facility] Chemistr y BUN 14 mg/dL 8 - 26 07/14 N [facility] Chemistr y Bilirubin Total 0.8 mg/dL 0.2 - 1.2 07/14 N [facility] Chemistr y AST 17 U/L 5 - 34 07/14 N [facility] Chemistr y ALT 20 U/L 5 - 55 07/14 N [facility] Chemistr y Alk Phos 83 U/L 40 - 150 07/14 N [facility] Chemistr y Albumin 3.80 g/dL 3.50 - 5.20 07/14 N [facility] Chemistr y AGAP 7.00 0.00 - 15.00 07/14 N [facility] Hematolo gy Neutrophil % Auto 49.3 % 46.0 - 77.0 07/14 N [facility] Hematolo gy Neutro Absolute 2.2 x10^3/mc L 2.0 - 7.0103 07/14 N [facility] Hematolo gy Monocyte % Auto 9 % 1 - 12 07/14 N [facility] Hematolo gy [place] Absolute 0.4 x10^3/mc L 0.2 - 0.8103 07/14 N [facility] Hematolo gy Lymph Absolute 1.6 x10^3/mc L 1.2 - 4.0103 07/14 N [facility] Hematolo gy Lymphocyte % Auto 36.4 % 20.0 - 40.0 07/14 N [facility] Pharm[facility] Hematolo gy Eosinophil % Auto 3 % 0 - 5 07/14 N [facility] Hematolo gy Eos Absolute 0.2 x10^3/mc L 0.0 - 0.7103 07/14 N [facility] Pharm[facility] Hematolo gy Basophil % Auto 1.4 % 0.0 - 2.5 07/14 N [facility] Hematolo gy Baso Absolute 0.1 x10^3/mc L 0.0 - 0.1103 07/14 N [facility] AP Specimen s AP Surgical Pathology Patient: Gary Veloz Specimen #: [id number] Patholog ist: Ramona Olivarez n, Col, USAF, MC, FS Accessio n: 08/24/2022 [facility] DEPARTME NT OF PATHOLOG Y [address] [place] [address] [address] [facility] [place] [address] Surgical Patholog y Report Patient: Gary Veloz Specimen #: [id number] [facility] ID:: [id number] Encoun r #: [id number] Taken: 08:07 /Age: 2 1990 (Age: 32) Received : 08/24/2022 11:09 Physicia n(s): ANGELIQUE GAGE Reported : 08/31/2022 Specimen (s) Received Taken Rec A: left mid chest, punch 3 08:07 08/24/2022 11:09 B: right forearm, punch 3 08:07 08/24/2022 11:09 Final Diagnosi s A. Skin, Left mid chest, Punch biopsy: - Follicul itis (see comment) . B. Skin, Right forearm, Punch biopsy: - Follicul itis (see comment) . Comments A. PAS and AFB-Steve stains are negative for fungal or acid-fas t organism s. A Treponem al immunohi stochemi sonal study is negative . B. A PAS stain is negative for fungal organism s. A Treponem al immunohi stochemi sonal study is negative . Addition al deeper levels are examined . Staining control( s) appropri ately reactive with appropri ate internal negative control. This case was reviewed in dermatop athology consensu s conferen ce with concurre nce. Elect jacinto y Signed lmm/2022 Ramona Olivarez n, Col, USAF, MC, FS Microsco pic Descript ion A and B. Sections show rupture of the follicul ar infundib ulum, with numerous neutroph ils (more pronounc ed in part A). 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 r/out follicul itis, follicul ar eczema, pityrosp orum follicul itis Gross Descript ion Received in formalin in 2 parts each labeled with the correct patient' s name and secondar y identifi ers. A designat ed left mid chest is a punch measurin g 0.3 x 0.3 x 0.4 cm intact ET 1. B designat ed right forearm is a punch measurin g 0.2 x 0.2 x 0.2 cm intact ET 1. Blocks submitte d in 10% neutral- buffered formalin for paraffin -embedde d sections . Cold ischemic time : N/A. Total fixation time: N/A. WEW/LMM CPT Codes: A; 64943, 70145, 71639, 76766 B; 32924, 74160, 48479 08/22 Ambulator y Pharmacy Vital Signs Combined list of inpatient and outpatient Vital Signs from Department of Defense and Veterans Affairs, ranging from 12 months to all on record, depending upon the facility. Vital Sign Value Date Comments Source BP Site 05/16/2023 19:56:00 [facility] Blood Pressure Manual 05/16/2023 19:56:00 Ambulatory Pharmacy Systolic Blood Pressure 119mm[Hg] 05/16/2023 19:56:00 Ambulatory Pharmacy Diastolic Blood Pressure 76mm[Hg] 05/16/2023 19:56:00 Ambulatory Pharmacy Mean Arterial Pressure, Calc 90mm[Hg] 05/16/2023 19:56:00 Ambulatory P harmacy Peripheral Pulse Rate 66bpm 05/16/2023 19:56:00 Ambulatory Pharmacy Respiratory Rate 16br/min 05/16/2023 19:56:00 Ambulatory Pharmacy Temperature Oral 36.6Cel 05/16/2023 19:56:00 Ambulatory Pharmacy Systolic Blood Pressure 117mm[Hg] 07/29/2023 13:23:00 Ambulatory Pharmacy Diastolic Blood Pressure 82mm[Hg] 07/29/2023 13:23:00 Ambulatory Pharmacy Mean Arterial Pressure, Calc 94mm[Hg] 07/29/2023 13:23:00 Ambulatory P harmacy Peripheral Pulse Rate 62bpm 07/29/2023 13:23:00 Ambulatory Pharmacy Respiratory Rate 16br/min 07/29/2023 13:23:00 Ambulatory Pharmacy Temperature Oral 36.7Cel 07/29/2023 13:23:00 Ambulatory Pharmacy BP Site 07/29/2023 13:23:00 [facility] Blood Pressure Manual 07/29/2023 13:23:00 Ambulatory Pharmacy Encounters Combined list of: 1) Encounters from Department of Veterans Affairs facilities going back up to thelast 18 months. 2) Encounters from the Department of Defense facilities going back up to 280 months. Location Location Details Encounter Type Encounter Number Reason For Visit Attending Provider ADM Date DC Date Status Disposition Source [facility] Rich [employer]) OUTPATIENT [id number] EVERETTE TAMAYO 10/10 Released w/o Limitations [facility]( [place] Recruit Process ing) [facility](RHONDA Villanueva HC Program) OUTPATIENT [id number] Referen trina CID, SHERRIE 10/12 Released w/o Limitations [facility] HC Program ) [facility] D Optometry ) OUTPATIENT [id number] RECRUIT EXAM LOIS ALLISON 10/12 Released w/o Limitations [facility]( CRD Optomet ry) [facility] D Recruit Processin g) OUTPATIENT [id number] T22 VACCINE MIGUEL, CHAYA 11/10 Released w/o Limitations [facility] Recruit Process ing) [facility] D Recruit Processin g) OUTPATIENT [id number] T48 VACCINE MIGUEL, CHAYA 12/12 Released w/o Limitations [facility] Recruit Process ing) [facility] [place] , [place](31 ABC Primary Care) OUTPATIENT [id number] post crucibJENNY Greene 01/04 Released w/o Limitations [facility] [place] [facility] [place] [place] OUTPATIENT [id number] CHRISTOPHER Russell 03/08 Released w/o Limitations [facility] [place] [facility] Kate - Med [place]) OUTPATIENT [id number] n/v/d (LIBRARY MEDIA ASSISTANT) CASSIE DESOUZA 04/03 Sick at Home/Quarter s [facility]( [place] - [facility]) [facility]([place]) OUTPATIENT [id number] pha/imm s BLAZE ARRINGTON 06/27 Released w/o Limitations [facility]( [place]) [facility]([place]) OUTPATIENT [id number] PEARL GOMES 09/09 Released w/o Limitations [facility]( [place] 28) [facility](Op tometry CP Cln) OUTPATIENT [id number] BLURRED VISION GARY DICKENS 02/19 Released w/o Limitations [facility]( Optomet ry CP Cln) [facility](Au diology Cln) OUTPATIENT [id number] MARIELA CAVANAUGH 05/06 Released w/o Limitations [facility]( Audiolo gy Cln) [facility] Team 2) OUTPATIENT [id number] flu-lik e symptom s OSMAR ROQUE 05/30 Sick at Home/Quarter s [facility]( [facility] Team 2) [facility] Team 2) OUTPATIENT [id number] Notes Entered by: LAURA RODRÍGUEZ 31 Jul 2012 1306 ------- ------- ------- ------- -- JESSI Grijalva 07/31 Released w/o Limitations [facility]( [facility] Team 2) [place]([facility] [employer]) OUTPATIENT [id number] Notes Entered by: TAYLOR GIRALDO 18 Nov 20129 ------- ------- ------- ------- -- Documen tation of vaccina tion GARY GIRALDO 11/18 Released w/o Limitations [place]([facility]) [place] ([facility] OUTPATIENT [id number] sores in mouth PAULINA MEDINA 12/08 Released w/o Limitations [place]([facility])) [facility](Op tometry CP Cln) OUTPATIENT [id number] BLURRED VISION/ TO GET CL OUT IN TOWN GARY DICKENS 05/19 Released w/o Limitations [facility]( Optomet ry CP Cln) [facility] Team 2) OUTPATIENT [id number] back pain (injury PT) GIBRAN MAURICIO 07/07 Released with Work/Duty Limitations [facility]( [facility] Team 2) [facility] Team 1) OUTPATIENT [id number] Notes Entered by: Rich LOJA 14 Jul 2013 0741 ------- ------- ------- ------- -- audioCOLLEEN Minaya am 07/14 Released w/o Limitations [facility]( [facility] Team 1) [facility] Team 2) OUTPATIENT [id number] JESSI GRIJALVA 07/15 Released w/o Limitations [facility]( [facility] Team 2) [facility] Team 1) OUTPATIENT [id number] Notes Entered by: TABBY MONTGOMERY 06 Aug [id number] ------- ------- ------- ------- -- MARCUS Valente 08/06 Released w/o Limitations [facility]( [facility] Team 1) [facility] Team 2) OUTPATIENT [id number] GIBRAN Dove 09/17 Released w/o Limitations [facility]( [facility] Team 2) [facility] Team 2) OUTPATIENT [id number] R shoulde r pain JU TURNER 11/02 Released with Work/Duty Limitations [facility]( [facility] Team 2) [facility] Team 2) OUTPATIENT [id number] R shoulde r pain OSMAR ROQUE 11/09 Released with Work/Duty Limitations [facility]( [facility] Team 2) [facility](Ph ysical Therapy Cln) OUTPATIENT [id number] SHOULDE R STRAIN DELTOID MUSCLE RIGHT KIKI ARZATE 11/30 Released with Work/Duty Limitations [facility]( Physica l Therapy Cln) [facility](Ph ysical Therapy Cln) OUTPATIENT [id number] tx r shKIKI Giron 12/02 Released w/o Limitations [facility]( Physica l Therapy Cln) [facility](Ph ysical Therapy Cln) OUTPATIENT [id number] tx KIKI Martell 12/08 Released w/o Limitations [facility]( Physica l Therapy Cln) [facility](Ph ysical Therapy Cln) OUTPATIENT [id number] tx KIKI Martell 12/10 Released w/o Limitations [facility]( Physica l Therapy Cln) [facility](Ph ysical Therapy Cln) OUTPATIENT [id number] tx KIKI Martell 12/15 Released w/o Limitations [facility]( Physica l Therapy Cln) [facility](Ph ysical Therapy Cln) OUTPATIENT [id number] tx KIKI Martell 12/22 Released w/o Limitations [facility]( Physica l Therapy Cln) [facility](Ph ysical Therapy Cln) OUTPATIENT [id number] tx KIKI Martell 12/24 Released w/o Limitations [facility]( Physica l Therapy Cln) [facility] Team 2) OUTPATIENT [id number] R JU Urrutia 12/24 Released with Work/Duty Limitations [facility]( [facility] Team 2) [facility](Ph ysical Therapy Cln) OUTPATIENT [id number] re eval KIKI Martell 12/28 Released with Work/Duty Limitations [facility]( Physica l Therapy Cln) [facility](Ph ysical Therapy Cln) OUTPATIENT [id number] tx KIKI Martell 01/05 Released w/o Limitations [facility]( Physica l Therapy Cln) [facility](Ph ysical Therapy Cln) OUTPATIENT [id number] tx r shld KIKI AZRATE 01/07 Released w/o Limitations [facility]( Physica l Therapy Cln) [facility](Re ferral Managemen t CP Cln) TELE CONSULT [id number] Notes Entered by: BROCK DOBBINS 13 Jan 2014 1023 ------- ------- ------- ------- -- MRI ARTHRO RT SHOULDE R/ DOS 4 JU TURNER NMN 01/13 [facility]( Referra l Managem ent CP Cln) [facility]([place] [facility] - [facility] [place]) OUTPATIENT [id number] hai BRUNSONARDKISHAIE IRENE 01/18 Released w/o Limitations [facility]( Ian [facility] - [facility] [place]) [facility] Team 2) OUTPATIENT [id number] Notes Entered by: KAITLIN HARMAN 11 Mar 2014 0910 ------- ------- ------- ------- -- Leaders hip Course hamilton bryson ([facility]) MARCUS OLIVIER 03/11 Released w/o Limitations [facility]( [facility] Team 2) [facility] Team 2) OUTPATIENT [id number] f/u right shoulde YEMI Castro 03/11 Released w/o Limitations [facility]( [facility] Team 2) [facility] Team 2) OUTPATIENT [id number] oversea DREW Flores 05/12 Released w/o Limitations [facility]( [facility] Team 2) [facility] Team 1) OUTPATIENT [id number] Notes Entered by: Nelly HAMMOND 06 Aug 2014 1622 ------- ------- ------- ------- -- (B) GOV TERRELL HAMMOND 08/06 Released w/o Limitations [place] [facility] c[facility] al Medicine) OUTPATIENT [id number] Notes Entered by: CASSIDY CONDON 18 Aug 2014 1328 ------- ------- ------- ------- -- PHA-B AMIRA CONDON 08/18 Released w/o Limitations [place] (Occupa tional Medicin e) [facility] Immunizat ions) OUTPATIENT [id number] Notes Entered by: KAREN IGNACIO 18 Aug 2014 1342 ------- ------- ------- ------- -- BERTHA JASMINE 08/18 Released w/o Limitations [place] [facility] ([facility] Immuniz ations) [facility](P DHRA Clinic) OUTPATIENT [id number] 3-B PACO TOMLINSON 08/25 Released w/o Limitations [facility] ([facility](E v[facility] Hearing Conservat ion) OUTPATIENT [id number] 503,,,A ONEAL ALONZO 08/29 Released w/o Limitations [facility] ([facility] Hearing Conserv ation) [facility](O ccupation al Medicine) OUTPATIENT [id number] Notes Entered by: KIKI GARZA V 18 Jan 2015 1411 ------- ------- ------- ------- -- FLU KIKI GARZA 01/18 Released w/o Limitations [place] (Occupa tional Medicin e) [place]([facility] Med PCMH Team 1) OUTPATIENT [id number] RT SHOULDE R PAIN X1 YEAR-ME EVIOUS INJURY DELMI GONZALEZ 03/28 Released w/o Limitations [place] ([facility] Med PC[facility] Team 1) [facility](P hysical Therapy Clinic) OUTPATIENT [id number] MAGGY BOWENS 04/28 Released w/o Limitations [facility] (Physic al Therapy Clinic) [facility](P hysical Therapy Clinic) OUTPATIENT [id number] f/u RT shoulde r pain, review xrays with focus on AC MAGGY BOWENS 06/05 Released w/o Limitations [facility] (Physic al Therapy Clinic) [facility](O rthopedic Clinic) OUTPATIENT [id number] RT Shoulde r AC Pain/sp ec YUMIKO ROSS 06/13 Released with Work/Duty Limitations [facility] (Orthop edic Clinic) [facility](O ccupation al Medicine) OUTPATIENT [id number] PHA,,,, ,FT DAISHA HORNER 08/02 Released w/o Limitations [facility] (Occupa tional Medicin e) [facility](O rthopedic Clinic) OUTPATIENT [id number] F/U R shoulde r YUMIKO ROSS 08/03 Released with Work/Duty Limitations [facility] (Orthop edic Clinic) [facility](O ptometry Clinic) OUTPATIENT [id number] REE/623 4806 GARY STEWART 08/29 Released w/o Limitations [facility] (Optome try Clinic) [facility] PCMH Team 1) TELE CONSULT [id number] Notes Entered by: Velasquez VILLEDA 30 Aug 2015 1546 ------- ------- ------- ------- -- CORRY Lane 08/29 Released to Self Care [facility] ([facility] PCM Team 1) [facility](O ptometry Clinic) OUTPATIENT [id number] cl F/u GARY STEWART 09/06 Released w/o Limitations [facility] (Optome try Clinic) [facility] Med PCMH Team 1) OUTPATIENT [id number] right shoulde r pain. KIKI CROWELL 11/02 Released w/o Limitations [facility] ([facility] Team 1) [facility](O rthopedic Clinic) OUTPATIENT [id number] F/U R Shoulde r/per Dr Ashu rizzo surgery /R AC Open YEMI Bar 11/07 Released with Work/Duty Limitations [facility] (Orthop edic Clinic) [facility](O rthopedic Clinic) OUTPATIENT [id number] f/u R shoulde YEMI Fitch 11/21 Released w/o Limitations [facility] (Orthop edic Clinic) [facility](O rthopedic Clinic) OUTPATIENT [id number] 2 wks post op/DOS 22Sept/ R shoulde r SAD/ope n YEMI SHETTY 12/28 Released w/o Limitations [facility] (Orthop edic Clinic) [facility](H ansen Hearing Conservat ion) OUTPATIENT [id number] 503,,,D SMITH CLARKE 01/19 Released w/o Limitations [facility] ([place] [facility] ation) [facility](H ansen Physical Therapy) OUTPATIENT [id number] KALANI ANGELES AUGUST 02 Released w/o Limitations [facility] ([place] Physica l Therapy ) [facility](O rthopedic Clinic) OUTPATIENT [id number] f/u R shoulde YEMI Fitch 01/28 Released w/o Limitations [facility] (Orthop edic Clinic) [facility](H ansen Physical Therapy) OUTPATIENT [id number] TERRA AYOUB 02/01 Released w/o Limitations [facility] ([place] Physica l Therapy ) [facility](H ansen Physical Therapy) OUTPATIENT [id number] TERRA AYOUB 02/13 Released w/o Limitations [facility] ([place] Physica l Therapy ) [facility](H ansen Physical Therapy) OUTPATIENT [id number] KALANI ANGELES AUGUST 03 Released w/o Limitations [facility] ([place] Physica l Therapy ) [facility](H ansen [facility] Team 1) OUTPATIENT [id number] [facility] [phone] PHA MARCELA NEVILLE IV 09/06 Released w/o Limitations [facility] ([facility] Team 1) [place](O ptometry Clinic) OUTPATIENT [id number] REE/CL fit/850 -2568 DAV ATKINSONO O 09/14 Released w/o Limitations [place] (Optome try Clinic) [place]( enrique [facility] Team 1) OUTPATIENT [id number] Notes Entered by: ASHLEY GARCIA 19 Sep 2016 0744 ------- ------- ------- ------- -- Ulcer Right eye DALLINCELINA TORY Manuel 09/18 Released w/o Limitations [place] ([facility] Team 1) [facility] PHA) OUTPATIENT [id number] pha TERRELL Mosley 11/09 Released w/o Limitations [facility] ([facility] PHA) [facility] Immunizat ions) OUTPATIENT [id number] Notes Entered by: ADRIAN DAN 19 Nov 2016 1004 ------- ------- ------- ------- -- ELVA PARTIDA 11/19 Released w/o Limitations [place] ([facility] Immuniz ations) [facility] Team 1) OUTPATIENT [id number] MIGUEL ÁNGEL Guzman 01/29 [facility]ased w/o Limitations [facility] ([facility] Team [facility]) [facility] Immunizat ions) OUTPATIENT [id number] Notes Entered by: NICKOLAS SCHNEIDER 17 Apr 2017 1503 ------- ------- ------- ------- -- ELVA RENTERIA 04/17 Released w/o Limitations [place] ([facility] Immuniz ations) [facility] Team 1) OUTPATIENT [id number] left knee pain sharp pain LEADER, KIKI INNA 06/18 Released w/o Limitations [place] ([facility] Team [facility]) [place]([facility] Team 1) OUTPATIENT [id number] right ankle pain CAROL CARRIONROULA 07/29 Released w/o Limitations [place] ([facility] Team [facility]) OR [place](P odiatry Clinic) OUTPATIENT [id number] Pain in right ankle and joints of right foot BHAKTI HILLAS 07/30 Released with Work/Duty Limitations [facility] (Podiat [facility]) [place]([facility] ion) OUTPATIENT [id number] 503 LOUIE GOODWIN 08/09 [facility]ased w/o Limitations [facility] ([place] [facility]) [facility] Team 1) OUTPATIENT [id number] congest ion X3days MYRNA KAYE 08/17 [facility]ased w/o Limitations [facility] ([facility] Team [facility]) [place]([facility] Team 1) OUTPATIENT [id number] Physica l for MYRIAM FORRESTER 08/26 Released w/o Limitations [facility] ([facility] Team [facility]) [facility](P odiatry Clinic) OUTPATIENT [id number] F/U R Foot WB XR BHAKTI HILL LAURA 09/11 Released w/o Limitations [place] (Podiat ry Clinic) [employer] [facility]) OUTPATIENT [id number] Initial appt - anxiety issues [phone] PRERNA ABURTO 07/22 Released w/o Limitations [employer] BACK ([facility]) [address] [place] [address] Group [employer] BACK [facility])([facility]) OUTPATIENT [id number] 2 BHOP APPT [phone] PRERNA ABURTO 07/29 Released w/o Limitations [facility] Group [facility] BACK ([facility]) [address] [place] [address] Group [employer] BACK ([facility])(Fam ruby Med Tm B Non-AD BCC) OUTPATIENT [id number] 1 INITIAL APPT FOR MEDS PER BIXBY/ [facility] [phone] YANN CASANOVA 07/31 Released w/o Limitations [facility] GARNETTB ([facility])(F amily Med Tm B Non-AD BCC) [address] [place] [address])(War rior Op Med Cln Tm A Ad) OUTPATIENT [id number] 2 F/U Anxiety Medicat ion with med renewal GRIS RAMIREZ 12/18 Released w/o Limitations [address] [place] [address] Group [employer] B ([facility])(W arrior Op Med Cln Tm A Ad) [address] [place] [address])(Opt ometry) OUTPATIENT [id number] 7 Annual SWAPNA ALFARO 01/30 Released w/o Limitations [address] [place] [address] [facility] B [facility])(O ptometr y) [address] [place] [address])(Opt ometry) OUTPATIENT [id number] Contact fitting /Duane on SWAPNA ALFARO 02/12 Released w/o Limitations [address] [place] [place] [address] [employer] B ([facility])(O ptometr y) [address] [place] [address])(OFM C OP) OUTPATIENT [id number] 6 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 PRERNA ABURTO 03/24 Released w/o Limitations [address] [place] [address] [employer] ([facility]O [place]) [address] [place] [address])(Sco tt [facility]) TELE CONSULT [id number] Notes Entered by: Rich CANCINO 27 Mar 2019 1120 ------- ------- ------- ------- -- Well check - Culline y - per [facility] (Prerna Aburto) request GRACIE CANCINO 03/27 Other Not Elsewhere Classified [facility] [employer] ([facility]S cott [facility]) [address] [place] [address])(War rior Op Med Cln Tm A Ad) OUTPATIENT [id number] Discuss medicat ion and certified genetic counselor ing DANA, M 03/27 Released w/o Limitations [address] [place] [address] Group [facility])(W arrior Op Med Cln Tm A Ad) [address] [place] [address])(War rior Op Med Cln Tm A Ad) TELE CONSULT [id number] Notes Entered by: EMILY CORRIGAN 06 Apr 2019 1601 ------- ------- ------- ------- -- lab results MELBALILY MCCLENDONRICIA 04/06 Released to Self Care [address] [place] [address] Group [facility])(W arrior Op Med Cln Tm A Ad) [address] [place] [address])(War rior Op Med Cln Tm A Ad) TELE CONSULT [id number] 8 Notes Entered by: DULCE SOSA 23 Apr 2019 1203 ------- ------- ------- ------- -- Lab Results / Kenn winkler / - sgj ESCOBAR TILLEY 04/23 Other Not Elsewhere Classified [address] [place] [address])(W arrior Op Med Cln Tm A Ad) [address] [place] [address])(War rior Op Med Cln Tm A Ad) OUTPATIENT [id number] 1 [facility] F/U - SX persist - abdomin al pain [id number] FRANCISCO ARREAGA 05/04 Released w/o Limitations [address] [place] [address] [facility])(W arrior Op Med Cln Tm A Ad) [address] [place] [address])(War rior Op Med Cln Tm A Ad) TELE CONSULT [id number] Notes Entered by: FRANCISCO ARREAGA 05 May 2019 1538 ------- ------- ------- ------- -- RUQ pain FRANCISCO ARREAGA 05/[address] [place] [address])(W arrior Op Med Cln Tm A Ad) [address] [place] [address])(War rior Op Med Cln Tm A Ad) TELE CONSULT [id number] 7 Notes Entered by: FRANCISCO ARREAGA 07 May 2019 1018 ------- ------- ------- ------- -- Ultraso und results MAI SINGH 05/07 Other Not Elsewhere Classified [address] [place] [address])(W arrior Op Med Cln Tm A Ad) [address] [place] [address])(War rior Op Med Cln Tm A Ad) OUTPATIENT [id number] Cough/s tuffy nose/na madelin/abraham st congest ion/sor e throat [id number] DUNG LE 05/20 Released w/o Limitations [address] [place] [address])(W arrior Op Med Cln Tm A Ad) [address] [place] [address])(War rior Op Med Cln Tm A Ad) [facility] [id number]08 Released w/o Limitations [address] [place] [address])(W arrior Op Med Cln Tm A Ad) [address] [place] [address])(War rior Op Med Cln Tm A Ad) TELE CONSULT [id number] 8 Notes Entered by: JANES BARRETT 03 Mar 2020 0922 ------- ------- ------- ------- -- kurtis patel/[phone] MELISSA Rosa 03/03 Referred for Appointment [address] [place] [address])(W arrior Op Med Cln Tm A Ad) [address] [place] [address])(War rior Op Med Cln Tm A Ad) TELE CONSULT [id number] 9 Notes Entered by: Miguel A JUAREZ 04 Mar 2020 1417 ------- ------- ------- ------- -- Network results Urgent Care 020 GRIS FARAH 03/[address] [place] [address] ([facility])(W arrior Op Med Cln Tm A Ad) [address] [place] [address] [facility])(Opt ometry) OUTPATIENT [id number] routine eye exam [phone] DIAMANTE FACUNDOISABEL 05/18 Released w/o Limitations [address] [place] [address] [facility]O [facility] y) [address] [place] [address] [facility])(War rior Op Med Cln Tm A Ad) TELE CONSULT [id number] 6 Notes Entered by: Mich PRESTON 07 Nov 2020 0947 ------- ------- ------- ------- -- Network results ED 11/06/19 21 GRIS CANTRELL 11/[address] [place] [address] [facility])(W arrior Op Med Cln Tm A Ad) [address] [place] [address])(War rior Op Med Cln Tm A Ad) TELE CONSULT [id number] 5 Notes Entered by: COLTON SCOTT 09 Nov 2020 1011 ------- ------- ------- ------- -- Humana Militar y Daily Inpatie nt Roster- Admissi on Notific GRIS Hernandez 11/[address] [place] [address] [facility]W arrior Op Med Cln Tm A Ad) [address] [place] [address] [facility])(War rior Op Med Cln Tm A Ad) TELE CONSULT [id number] 5 Notes Entered by: COLTON SCOTT 14 Nov 2020 0835 ------- ------- ------- ------- -- [employer] Militar y Daily Inpatie nt Roster- Dischar ge NotifGRIS Amanda 11/[address] [place] [address] [facility])(W arrior Op Med Cln Tm A Ad) [address] [place] [address] [facility])(War rior Op Med Cln Tm A Ad) TELE CONSULT [id number] 8 Notes Entered by: RAISA BROWN,ANIT A 22 Nov 2020 1132 ------- ------- ------- ------- -- Lab Test Request - Wilianita nelly F/U/ Renée / - [facility] LONI TAYN 11/22 Other Not Elsewhere Classified [address] [place] [address])(W arrior Op Med Cln Tm A Ad) [address] [place] [address])(War rior Op Med Cln Tm A Ad) TELE CONSULT [id number] Notes Entered by: RAISA BROWN,ANIT A 29 Nov 2020 1010 ------- ------- ------- ------- -- Vasecto my Referra l Request / / Renée / - [facility] ELIER ROSALES 11/29 Released to [facility] [address] [place] [address])(W arrior Op Med Cln Tm A Ad) [address] [place] [address])(War rior Op Med Cln Tm A Ad) TELE CONSULT [id number] Notes Entered by: HILTON CALHOUN 22 May 2021 0857 ------- ------- ------- ------- -- Sx - Anxiety & Fatigue /Woosle y/ ELIER ROSALES 05/22 Released to [facility] [address] [place] [address])(W arrior Op Med Cln Tm A Ad) [address] [place] [address])(War rior Op Med Cln Tm A Ad) OUTPATIENT [id number] fatigue /anxiet y s/p covid anaf MYRNA BLACK 05/26 Released w/o Limitations [address] [place] [address])(W arrior Op Med Cln Tm A Ad) [address] [place] [address])(War rior Op Med Cln Tm A Ad) TELE CONSULT [id number] 2 Notes Entered by: RONEY BLACK 05 Jun 2021 1209 ------- ------- ------- ------- -- lab and med follow- up MELISSA WAYNE 06/05 Other Not Elsewhere Classified [address] [place] [address])(W arrior Op Med Cln Tm A Ad) [address] [place] [address])(War rior Op Med Cln Tm A Ad) TELE CONSULT [id number] 5 Notes Entered by: ESCOBAR TILLEY 13 Jun 2021 1035 ------- ------- ------- ------- -- 7-10 day call/BH OP/ESCOBAR Glasgow 06/13 Released to Self Care [address] [place] [address])(W arrior Op Med Cln Tm A Ad) [address] [place] [address])(War rior Op Med Cln Tm A Ad) TELE CONSULT [id number] 9 Notes Entered by: MATEUSZ BEDOLLA 29 Jun 2021 1322 ------- ------- ------- ------- -- Pt seeking marcella grullon about injury from 2000 LILY WESTBROOK 06/29 Other Not Elsewhere Classified [address] [place] [address])(W arrior Op Med Cln Tm A Ad) [address] [place] [address])(War rior Op Med Cln Tm A Ad) TELE CONSULT [id number] 6 Notes Entered by: HILTON CALHOUN 02 Aug 2021 0843 ------- ------- ------- ------- -- OPT Lanny Messina /Anson winkler/ MELISSA WAYNE 08/02 Referred for Appointment [address] [place] [address])(W arrior Op Med Cln Tm A Ad) [address] [place] [address])(War rior Op Med Cln Tm A Ad) TELE CONSULT [id number] 8 Notes Entered by: HALIE WHITE 04 Oct 2021 0947 ------- ------- ------- ------- -- Sx Pain Rt Mid Abdomen / F/U urgent Care Visit/ Shane / [id number] MELISSA WAYNE 10/04 Referred for Appointment [address] [place] [address])(W arrior Op Med Cln Tm A Ad) [address] [place] [address])(War rior Op Med Cln Tm A Ad) OUTPATIENT [id number] Abd pain EMILY DESHPANDE 10/10 Released w/o Limitations [address] [place] [address])(W arrior Op Med Cln Tm A Ad) [address] [place] [address])(War rior Op Med Cln Tm A Ad) TELE CONSULT [id number] 2 Notes Entered by: Brant DESHPANDE 24 Oct 2021 0955 ------- ------- ------- ------- -- testost erone lab results EMILY DESHPANDE 10/[address] [place] [address])(W arrior Op Med Cln Tm A Ad) [address] [place] [address])(War rior Op Med Cln Tm A Ad) TELE CONSULT [id number] 3 Notes Entered by: HUGO CHAND 07 Nov 2021 1422 ------- ------- ------- ------- -- Network results Surgery 022 [facility] EMILY DESHPANDE 11/[address] [place] [address])(W arrior Op Med Cln Tm A Ad) [address] [place] [address])(War rior Op Med Cln Tm A Ad) OUTPATIENT [id number] Derm lanny durham,31 [phone] phone call appt KAPIL BANUELOS 11/17 Released w/o Limitations [address] [place] [address])(W arrior Op Med Cln Tm A Ad) [facility])(War rior Op Med Cln Tm A Ad) OUTPATIENT [id number] F2F - F/U for ED EMILY DESHPANDE 12/11 Released w/o Limitations [address] [place] [address] Group [facility])(W arrior Op Med Cln Tm A Ad) [address] [place] [address])(War rior Op Med Cln Tm A Ad) TELE CONSULT [id number] Notes Entered by: ANTOINETTE MCKEON 12 Dec 2021 0910 ------- ------- ------- ------- -- Network results Surgery 022 EMILY MANLEY 12/[address] [place] [address] Group [facility])(W arrior Op Med Cln Tm A Ad) [address] [place] [address])(War rior Op Med Cln Tm A Ad) TELE CONSULT [id number] 2 Notes Entered by: Clarissa CUNNINGHAM 17 Jan 2022 111 ------- ------- ------- ------- -- Network results Optomet ry 022 EMILY SMART 01/[address] [place] [address] Group [facility])(W arrior Op Med Cln Tm A Ad) [address] [place] [address])(War rior Op Med Cln Tm A Ad) TELE CONSULT [id number] 9 Notes Entered by: Miguel A JUAREZ 14 Mar 2022 1446 ------- ------- ------- ------- -- Network results Urology 022 EMILY CABRAL 03/[address] [place] [address] Group [facility])(W arrior Op Med Cln Tm A Ad) [address] [place] [address])(War rior Op Med Cln Tm A Ad) TELE CONSULT [id number] 7 Notes Entered by: ASHLEY DANIELS 08 May 2022923 ------- ------- ------- ------- -- RX Raghu /Charlee/ JOSE TOLBERT 05/08 Advice Assessment [facility])(W arrior Op Med Cln Tm A Ad) [facility])(War rior Op Med Cln Tm A Ad) OUTPATIENT [id number] F2F - Re-enli stment Kennedy l, [employer] (resche dule), CHARLEEALISHAMEGHANA MONTILLA 05/15 Released w/o Limitations [address] [place] [address] [facility])(W arrior Op Med Cln Tm A Ad) [address] [place] [address])(Mason matology) OUTPATIENT [id number] f/u ANGELIQUE GAGE 08/22 Released w/o Limitations [address] [place] [address])(Rich mendiola) 0055C-375 [facility] [id number] dorie Abbott 08/06 Discharge Disposition: Home or Self Care 0055C-3 [facility] 0055C-375 th [facility] Visit [id number] 12/09 Discharge Disposition: Home or Self Care 0055C[facility] 0055C[facility]375 [facility] Visit [id number] 12/09 Discharge Disposition: Home or Self Care 0055C[facility] 0055C[facility]375 [facility] Outpatient [id number] Anxiety disorde r, unspeci fied RAFY NMVEE 12/11 Discharge Disposition: Home or Self Care 0055C[facility] 0055C-375 [facility] Dental [id number] RAMAN DBRUSH 01/28 Discharge Disposition: Home or Self Care 0055C-3 [facility] Procedures Combined list of: 1) Procedures from Department of Veterans Affairs facilities going back up to thelast 18 months, not all VA non-surgical procedures are included; 2) All procedures from the Department of Defense facilities. Procedure Procedure Type Code Date Perfomer Comments Sourc e No data available for this section [facility] INJECTION, PENICILLIN G BENZATHINE, 100,000 UNITS 12/12 DoD INJECTION, PENICILLIN G BENZATHINE, 100,000 UNITS 11/10 [facility] DETERMINATION OF REFRACTIVE STATE 10/12 DoD PHYS/OTH QUALIFIED HEALTH BALLPOINT PEN CARTRIDGE TESTER QUALIFIED,EDUCATIO N,TRAIN,LICENSURE/ REGULATION (WHEN APPLICABLE) EDUC SER RENDERED TO PATS IN A GRP SETTING (EG,,OBESI TY,OR DIABETIC INSTRUCT) 10/12 [facility] TETANUS, DIPHTHERIA TOXOIDS AND ACELLULAR PERTUSSIS VACCINE (TDAP), WHEN ADMINISTERED TO INDIVIDUALS 7 YEARS OR OLDER, FOR INTRAMUSCULAR USE 10/10 [facility] PATIENT EDUCATION, NOT OTHERWISE CLASSIFIED, NON-PHYSICIAN PROVIDER, INDIVIDUAL, PER SESSION 08/09 [facility] SPLINT SUPPLIES, MISCELLANEOUS (INCLUDES THERMOPLASTICS, STRAPPING, FASTENERS, PADDING AND OTHER SUPPLIES) 07/26 [facility]D IMMUNIZATION ADMINISTRATION (INCLUDES PERCUTANEOUS, INTRADERMAL, SUBCUTANEOUS, OR INTRAMUSCULAR INJECTIONS); 1 VACCINE (SINGLE OR COMBINATION VACCINE/TOXOID) 04/17 DoD IMMUNIZATION ADMINISTRATION (INCLUDES PERCUTANEOUS, INTRADERMAL, SUBCUTANEOUS, OR INTRAMUSCULAR INJECTIONS); 1 VACCINE (SINGLE OR COMBINATION VACCINE/TOXOID) 11/19 [facility] PRESCRIPTION OF OPTICAL AND PHYSICAL CHARACTERISTICS OF AND FITTING OF CONTACT LENS, WITH MEDICAL SUPERVISION OF ADAPTATION; CORNEAL LENS, BOTH EYES, EXCEPT FOR APHAKIA 09/19 [facility] FITTING OF SPECTACLES, EXCEPT FOR APHAKIA; MONOFOCAL 09/14 DoD THERAPEUTIC, PROPHYLACTIC, OR DIAGNOSTIC INJECTION (SPECIFY SUBSTANCE OR DRUG); SUBCUTANEOUS OR INTRAMUSCULAR 07/02 [facility] PHYSICAL THERAPY RE-EVALUATION 02/26 DoD APPLICATION OF A MODALITY TO 1 OR MORE AREAS; VASOPNEUMATIC DEVICES 02/13 [facility] APPLICATION OF A MODALITY TO 1 OR MORE AREAS; VASOPNEUMATIC DEVICES 02/01 [facility] POSTOPERATIVE FOLLOW-UP VISIT, NORMALLY INCLUDED IN THE SURGICAL PACKAGE, INDICATE THAT EVALUATION & MANAGEMENT SERVICE WAS PERFORMED DURING A POSTOPERATIVE PERIOD REASON RELATED ORIGINAL PROCEDURE 01/29 [facility] SELF-CARE/HOME MANAGMENT TRAIN (EG,ACT OF DAILY LIVING (ADL) &COMPENSAT TRAIN,MEAL PREPARATION,SAFETY PROCS,AND INSTRUCT IN USE OF ASST TECHNOLOGY DEV/ADPT EQUIP) DIR ONE-ON-ONE CONT,EA 15 MINUTES 01/26 [facility] AUDIOMETRIC TESTING OF GROUPS 01/19 [facility] POSTOPERATIVE FOLLOW-UP VISIT, NORMALLY INCLUDED IN THE SURGICAL PACKAGE, INDICATE THAT EVALUATION & MANAGEMENT SERVICE WAS PERFORMED DURING A POSTOPERATIVE PERIOD REASON RELATED ORIGINAL PROCEDURE 12/28 [facility] UNLISTED SPECIAL SERVICE, PROCEDURE OR REPORT 12/14 [facility] OPHTHALMOLOGICAL SERVICES: MEDICAL EXAMINATION AND EVALUATION, WITH INITIATION OR CONTINUATION OF DIAGNOSTIC AND TREATMENT PROGRAM; INTERMEDIATE, ESTABLISHED PATIENT 09/06 [facility] PRESCRIPTION OF OPTICAL AND PHYSICAL CHARACTERISTICS OF AND FITTING OF CONTACT LENS, WITH MEDICAL SUPERVISION OF ADAPTATION; CORNEAL LENS, BOTH EYES, EXCEPT FOR APHAKIA 08/29 [facility] SCREENING TEST OF VISUAL ACUITY, QUANTITATIVE, BILATERAL 08/02 [facility] ARTHROCENTESIS, ASPIRATION AND/OR INJECTION, INTERMEDIATE JOINT OR BURSA (EG, TEMPOROMANDIBULAR, ACROMIOCLAVICULAR, WRIST, ELBOW OR ANKLE, OLECRANON BURSA); WITHOUT ULTRASOUND GUIDANCE 06/13 [facility] THERAPEUTIC PROCEDURE, 1 OR MORE AREAS, EACH 15 MINUTES; THERAPEUTIC EXERCISES TO DEVELOP STRENGTH AND ENDURANCE, RANGE OF MOTION AND FLEXIBILITY 06/06 [facility] THERAPEUTIC PROCEDURE,1 OR MORE AREAS,EACH 15 MINUTES;NEUROMUSCU LAR REEDUCATION OF MOVEMENT,BALANCE,C OORDINATION,KINEST HETIC SENSE,POSTURE,AND/ OR PROPRIOCEPTION FOR SITTING AND/OR STANDING ACTIVITIES 04/29 [facility] VITAL SIGNS (TEMPERATURE, PULSE, RESPIRATORY RATE, AND BLOOD PRESSURE) DOCUMENTED AND REVIEWED (CAP) (EM) 03/29 [facility] INFLUENZA VIRUS VACCINE, QUADRIVALENT, LIVE (LAIV4), FOR INTRANASAL USE 01/18 [facility] AUDIOMETRIC TESTING OF GROUPS 08/30 [facility] IMMUNIZATION ADMINISTRATION (INCLUDES PERCUTANEOUS, INTRADERMAL, SUBCUTANEOUS, OR INTRAMUSCULAR INJECTIONS); 1 VACCINE (SINGLE OR COMBINATION VACCINE/TOXOID) 08/18 [facility] SCREENING TEST OF VISUAL ACUITY, QUANTITATIVE, BILATERAL 08/18 [facility] INFLUENZA VIRUS VACCINE, QUADRIVALENT, LIVE (LAIV4), FOR INTRANASAL USE 01/18 [facility] APPLICATION OF A MODALITY TO 1 OR MORE AREAS; HOT OR COLD PACKS 01/07 [facility] APPLICATION OF A MODALITY TO 1 OR MORE AREAS; HOT OR COLD PACKS 01/05 [facility] THERAPEUTIC PROCEDURE, 1 OR MORE AREAS, EACH 15 MINUTES; THERAPEUTIC EXERCISES TO DEVELOP STRENGTH AND ENDURANCE, RANGE OF MOTION AND FLEXIBILITY 12/28 DoD APPLICATION OF A MODALITY TO 1 OR MORE AREAS; ELECTRICAL STIMULATION (UNATTENDED) 12/24 DoD APPLICATION OF A MODALITY TO 1 OR MORE AREAS; HOT OR COLD PACKS 12/22 DoD APPLICATION OF A MODALITY TO 1 OR MORE AREAS; HOT OR COLD PACKS 12/15 DoD UNLISTED THERAPEUTIC PROCEDURE (SPECIFY) 12/10 DoD UNLISTED THERAPEUTIC PROCEDURE (SPECIFY) 12/08 DoD UNLISTED THERAPEUTIC PROCEDURE (SPECIFY) 12/02 DoD THERAPEUTIC PROCEDURE, 1 OR MORE AREAS, EACH 15 MINUTES; THERAPEUTIC EXERCISES TO DEVELOP STRENGTH AND ENDURANCE, RANGE OF MOTION AND FLEXIBILITY 11/30 DoD SCREENING TEST, PURE TONE, AIR ONLY 07/14 DoD FITTING OF SPECTACLES, EXCEPT FOR APHAKIA; MONOFOCAL 05/19 DoD NEUROPSYCHOLOGICAL TESTING (EG, [place] CARD SORTING TEST), ADMINISTERED BY A COMPUTER, WITH QUALIFIED HEALTH BALLPOINT PEN CARTRIDGE TESTER INTERPRETATION AND REPORT 09/10 DoD SCREENING TEST, PURE TONE, AIR ONLY 05/06 DoD FITTING OF SPECTACLES, EXCEPT FOR APHAKIA; MONOFOCAL 02/19 DoD PUNCH BIOPSY OF SKIN (INCLUDING SIMPLE CLOSURE, WHEN PERFORMED); EACH SEPARATE/ADDITIONA L LESION (LIST SEPARATELY IN ADDITION TO CODE FOR PRIMARY PROCEDURE) 08/22 DoD TELE ASSESS & MGT SRV PROV QUAL NONPHYS HLTH CARE PRO TO EST PAT,PARENT,GUARD NOT ORIG REL ASSESS & MGT SRV PROV W/IN PREV 7 DAYS NOR LEAD ASSESS & MGT SRV/PX W/IN NXT 24 HR/SOON APT;5-10 MIN MED DIS 05/08 DoD WAIVER SERVICES; NOT OTHERWISE SPECIFIED (NOS) 11/20 DoD TELE ASSESS & MGT SRV PROV QUAL NONPHYS HLTH CARE PRO TO EST PAT,PARENT,GUARD NOT ORIG REL ASSESS & MGT SRV PROV W/IN PREV 7 DAYS NOR LEAD ASSESS & MGT SRV/PX W/IN NXT 24 HR/SOON APT;5-10 MIN MED DIS 10/04 DoD TELE ASSESS & MGT SRV PROV QUAL NONPHYS HLTH CARE PRO TO EST PAT,PARENT,GUARD NOT ORIG REL ASSESS & MGT SRV PROV W/IN PREV 7 DAYS NOR LEAD ASSESS & MGT SRV/PX W/IN NXT 24 HR/SOON APT;5-10 MIN MED DIS 08/02 DoD TELE ASSESS & MGT SRV PROV QUAL NONPHYS HLTH CARE PRO TO EST PAT,PARENT,GUARD NOT ORIG REL ASSESS & MGT SRV PROV W/IN PREV 7 DAYS NOR LEAD ASSESS & MGT SRV/PX W/IN NXT 24H/SOON APT; 21-30 MIN MED DIS 06/13 DoD TELE ASSESS & MGT SRV PROV QUAL NONPHYS HLTH CARE PRO TO EST PAT,PARENT,GUARD NOT ORIG REL ASSESS & MGT SRV PROV W/IN PREV 7 DAYS NOR LEAD ASSESS & MGT SRV/PX W/IN NXT 24 HR/SOON APT;5-10 MIN MED DIS 05/22 DoD TELE ASSESS & MGT SRV PROV QUAL NONPHYS HLTH CARE PRO TO EST PAT,PARENT,GUARD NOT ORIG REL ASSESS & MGT SRV PROV W/IN PREV 7 DAYS NOR LEAD ASSESS & MGT SRV/PX W/IN NXT 24 HR/SOON APT;5-10 MIN MED DIS 11/29 DoD PRESCRIPTION OF OPTICAL AND PHYSICAL CHARACTERISTICS OF AND FITTING OF CONTACT LENS, WITH MEDICAL SUPERVISION OF ADAPTATION; CORNEAL LENS, BOTH EYES, EXCEPT FOR APHAKIA 05/18 DoD TELE ASSESS & MGT SRV PROV QUAL NONPHYS HLTH CARE PRO TO EST PAT,PARENT,GUARD NOT ORIG REL ASSESS & MGT SRV PROV W/IN PREV 7 DAYS NOR LEAD ASSESS & MGT SRV/PX W/IN NXT 24 HR/SOON APT;5-10 MIN MED DIS 03/03 DoD TELE ASSESS & MGT SRV PROV QUAL NONPHYS HLTH CARE PRO TO EST PAT,PARENT,GUARD NOT ORIG REL ASSESS & MGT SRV PROV W/IN PREV 7 DAYS NOR LEAD ASSESS & MGT SRV/PX W/IN NXT 24 HR/SOON APT;5-10 MIN MED DIS 04/23 DoD DISEASE MANAGEMENT PROGRAM, FOLLOW-UP/REASSESS MENT 03/27 DoD BRIEF EMOTIONAL/BEHAVIOR AL ASSESSMENT (EG, DEPRESSION INVENTORY, ATTENTION-DEFICIT/ HYPERACTIVITY DISORDER [ADHD] SCALE), WITH SCORING AND DOCUMENTATION, PER STANDARDIZED INSTRUMENT 03/24 DoD OPHTHALMOLOGICAL SERVICES: MEDICAL EXAMINATION AND EVALUATION, WITH INITIATION OR CONTINUATION OF DIAGNOSTIC AND TREATMENT PROGRAM; INTERMEDIATE, ESTABLISHED PATIENT 02/12 [facility] FITTING OF SPECTACLES, EXCEPT FOR APHAKIA; MONOFOCAL 01/30 [facility] HEALTH AND BEHAVIOR INTERVENTION, EACH 15 MINUTES, [id number]; INDIVIDUAL 07/29 [facility] BRIEF EMOTIONAL/BEHAVIOR AL ASSESSMENT (EG, DEPRESSION INVENTORY, ATTENTION-DEFICIT/ HYPERACTIVITY DISORDER [ADHD] SCALE), WITH SCORING AND DOCUMENTATION, PER STANDARDIZED INSTRUMENT 07/22 [facility] Modalities Vasopneumatic Device Modalities Vasopneumatic Device 21289 12/08 SOTO SALES [facility] Modalities Electrical Stimulation Unattended Modalities Electrical Stimulation Unattended 38317 12/08 SOTO SALES [facility] Modalities Ultrasound Modalities Ultrasound 56783 12/08 [employer] Physical Therapy: ___ Se ion Segments, 15 Minutes Each Physical Therapy: ___ Session Segments, 15 Minutes Each 84421 12/08 [employer] Physical Therapy - Unlisted Therapeutic Procedure Physical Therapy - Unlisted Therapeutic Procedure 49664 12/02 SHAKIRA ALANIZ [facility] Modalities Cryotherapy Cold Packs Modalities Cryotherapy Cold Packs 15670 12/02 SHAKIRA ALANIZ [facility] Modalities Vasopneumatic Device Modalities Vasopneumatic Device 47965 12/02 SHAKIRA ALANIZ [facility] Modalities Ultrasound Modalities Ultrasound 12726 12/02 SHAKIRA ALANIZ Mobilization Soft Ti ue Mobilization Soft Tissue 41690 12/02 SHAKIRA ALANIZ [facility] Physical Therapy: ___ Se ion Segments, 15 Minutes Each Physical Therapy: ___ Session Segments, 15 Minutes Each 35380 12/02 SHAKIRA ALANIZ [facility] Physical Therapy: ___ Se ion Segments, 15 Minutes Each Physical Therapy: ___ Session Segments, 15 Minutes Each 32289 11/30 KIKI ARZATE [facility] Physical Therapy Service Evaluation Physical Therapy Service Evaluation 73801 11/30 KIKI ARZATE [facility] Audiogram (Screening) Audiogram (Screening) 33495 07/14 COLLEEN LOJA [facility] Determination Of Refractive State Determination Of Refractive State 75074 05/19 GARY DICKENS [facility] Spectacles Services Fitting Monofocal Except For Aphakia Spectacles Services Fitting Monofocal Except For Aphakia 25601 05/19 GARY DICKNES Ophthalmological Prior Patient Start Comprehensive Care Ophthalmological Prior Patient Start Comprehensive Care 61817 05/19 GARY DICKENS Psychometric Neuropsych Testing Battery Admin By Computer Psychometric Neuropsych Testing Battery Admin By Computer 92145 09/11 LILIAN RENNER [facility] Audiogram (Screening) Audiogram (Screening) 16056 05/06 MARIELA CAVANAUGH Determination Of Refractive State Determination Of Refractive State 48608 02/19 GARY DICKENS Spectacles Services Fitting Monofocal Except For Aphakia Spectacles Services Fitting Monofocal Except For Aphakia 28612 02/19 GARY DICKENS Ophthalmological New Patient Start Comprehensive Care Ophthalmological New Patient Start Comprehensive Care 47734 02/19 GARY DICKENS Physician Supervised Injection Intramuscular Antibiotic Physician Supervised Injection Intramuscular Antibiotic 83816 03/09 CHRISTOPHER TIPTON Physician Supervised Injection Intramuscular Antibiotic Physician Supervised Injection Intramuscular Antibiotic 66986 12/12 CHAYA RIVERA Injection, penicillin g benzathine, 100,000 units 12/12 CHAYA RIVERA Vaccines Viral Yellow Fever Vaccines Viral Yellow Fever 74749 12/12 CHAYA RIVERA Vaccines Viral Polio, Inactivated Vaccines Viral Polio, Inactivated 58697 11/13 JOEL KRISHNAN Injection, penicillin g benzathine, 100,000 units 11/13 JOEL KRISHNAN Physician Supervised Injection Intramuscular Antibiotic Physician Supervised Injection Intramuscular Antibiotic 84237 11/13 JOEL KRISHNAN Hepatitis A And Hepatitis B (Intramuscular Use) Adult Dosage Hepatitis A And Hepatitis B (Intramuscular Use) Adult Dosage 07586 11/13 JOEL KRISHNAN Determination Of Refractive State Determination Of Refractive State 98601 10/12 SHELLI SWAN Spectacles Services Fitting Monofocal Except For Aphakia Spectacles Services Fitting Monofocal Except For Aphakia 84940 10/12 SHELLI SWAN Ophthalmological New Patient Start Intermediate Level Care Ophthalmological New Patient Start Intermediate Level Care 06392 10/12 SHELLI SWAN [facility] Physician Supervised Group Educational Services 10/12 BALJEET CASAREZ [facility] Tdap Vaccine Seven Years Of Age And Above Tdap Vaccine Seven Years Of Age And Above 48450 10/11 GINA JACKSON [facility] Meningococcal Polysaccharide Vaccine Meningococcal Polysaccharide Vaccine 69254 10/11 GINA JACKSON [facility] Hepatitis A And Hepatitis B (Intramuscular Use) Adult Dosage Hepatitis A And Hepatitis B (Intramuscular Use) Adult Dosage 27275 10/11 GINA JACKSON [facility] Pneumococcal Polysaccharide Vaccine (Age 2Y+) Pneumococcal Polysaccharide Vaccine (Age 2Y+) 17409 10/11 IGNA JACKSON [facility] Psychometric Emotional / Behavioral A e ment Psychometric Emotional / Behavioral Assessment 76246 07/31 PRERNA ABURTO [facility] Health And Behavior Intervention, Each Additional 15 Minutes Individual Health And Behavior Intervention, Each Additional 15 Minutes Individual 06357 07/31 PRERNA ABURTO Psychometric Emotional / Behavioral A e ment Psychometric Emotional / Behavioral Assessment 90538 07/25 PRERNA ABURTO Health And Behav A e mt Each 15 Min Initial A e ment Health And Behav Assessmt Each 15 Min Initial Assessment 89632 07/25 PRERNA ABURTO [facility] Patient education, not otherwise cla ified, non-physician provider, individual, per se ion 08/09 LOUIE GOODWIN [facility] Threshold Audiogram (Pure Tone) Automated Threshold Audiogram (Pure Tone) Automated [id number] 08/09 LOUIE GOODWIN [facility] Meningococcal Polysaccharide Diphtheria Toxoid Conjugate Vaccine 04/17 NICKOLAS SCHNEIDER Meningococcal MCV4P; Series #: 1; .5 mL; IM; Left Arm; Mfg: [employer]; Lot: [id number]; VIS given (Matteo: 06/23/2015). [facility] Immunization Administration By Injection, One Vaccine Immunization Administration By Injection, One Vaccine 46773 04/17 NICKOLAS SCHNEIDER [facility] Vaccines Viral Moldovan Encephalitis Inactivated, Intramuscular Vaccines Viral Moldovan Encephalitis Inactivated, Intramuscular 29129 11/19 AMILCAR DAN Moldovan Encephalitis IM; Series #: 3; .5 mL; IM; Left Arm; Mfg: [employer]; Lot: [id number]; VIS given (Matteo: 04/17/13). DoD Immunization Administration By Injection, One Vaccine Immunization Administration By Injection, One Vaccine 52889 11/19 AMILCAR DAN GERARD Gonsalves Prescription And Fitting Bilateral Corneal Lenses (Not For Aphakia) Prescription And Fitting Bilateral Corneal Lenses (Not For Aphakia) 37618 09/18 TORY ATKINSON Determination Of Refractive State Determination Of Refractive State 02466 09/18 TORY ATKINSON Ophthalmological Prior Patient Start Intermediate Level Care Ophthalmological Prior Patient Start Intermediate Level Care 74538 09/18 TORY ATKINSON Spectacles Services Fitting Monofocal Except For Aphakia Spectacles Services Fitting Monofocal Except For Aphakia 66027 09/14 TORY ATKINSON Determination Of Refractive State Determination Of Refractive State 24107 09/14 TORY ATKINSON Ophthalmological Prior Patient Start Comprehensive Care Ophthalmological Prior Patient Start Comprehensive Care 44778 09/14 TORY ATKINSON Physical Therapy Service Re-Evaluation Physical Therapy Service Re-Evaluation 45187 02/27 KALANI ANGELES Modalities Vasopneumatic Device Modalities Vasopneumatic Device 54428 02/13 TERRA AYOUB Physical Therapy: ___ Se ion Segments, 15 Minutes Each Physical Therapy: ___ Session Segments, 15 Minutes Each 60457 02/13 TERRA AYOUB Modalities Vasopneumatic Device Modalities Vasopneumatic Device 72310 02/01 TERRA AYOUB Physical Therapy: ___ Se ion Segments, 15 Minutes Each Physical Therapy: ___ Session Segments, 15 Minutes Each 72866 02/01 TERRA AYOUB Postoperative Visit, Without Charge Postoperative Visit, Without Charge 86463 01/29 YEMI TODD Phys Therapy Education Self Care Training - Per 15 Minutes Phys Therapy Education Self Care Training - Per 15 Minutes 25748 01/26 KALANI ANGELES Physical Therapy Service Evaluation Physical Therapy Service Evaluation 57643 01/26 KALANI ANGELES Patient education, not otherwise cla ified, non-physician provider, group, per se ion 01/19 SMITH MONTENEGRO Audiometry Group Testing Audiometry Group Testing 68628 01/19 SMITH MONTENEGRO Postoperative Visit, Without Charge Postoperative Visit, Without Charge 77821 12/28 YEMI TODD Ophthalmological Prior Patient Start Intermediate Level Care Ophthalmological Prior Patient Start Intermediate Level Care 54645 09/06 DAYANARA CASTORENA Prescription And Fitting Bilateral Corneal Lenses (Not For Aphakia) Prescription And Fitting Bilateral Corneal Lenses (Not For Aphakia) 86240 08/29 DAYANARA CASTORENA Spectacles Services Fitting Monofocal Except For Aphakia Spectacles Services Fitting Monofocal Except For Aphakia 66633 08/29 DAYANARA CASTORENA Determination Of Refractive State Determination Of Refractive State 28452 08/29 DAYANARA CASTORENA Ophthalmological New Patient Start Comprehensive Care Ophthalmological New Patient Start Comprehensive Care 00766 08/29 DAYANARA CASTORENA Screening Test Of Visual Acuity, Quantitative, Bilateral Screening Test Of Visual Acuity, Quantitative, Bilateral 75658 08/02 DAISHA HORNER Corticosteroids Inj Intraartic Right Acromioclavicular Joint Corticosteroids Inj Intraartic Right Acromioclavicular Joint 06/13 YUMIKO ROSS RIGHT AC JOINT INJECTION PROCEDURE NOTE: Informed consent for right shoulder acromioclavicula r cortisone injection was obtained. We discussed the expectations of the injection as well as the risks, benefits and alternatives of steroid injection including, but not limited to, pain, bleeding, infection, fat atrophy, skin discoloration, steroid flare reaction, alteration of glucose metabolism in diabetics, bruising, lightheadedness, dizziness and nausea. Prospective benefits include alleviation of pain and inflammation, as well as increased motion. The right AC joint was palpated and marked with a pen. The skin was prepped with alcohol and Betadine; ethyl chloride spray was used as a cutaneous anesthetic. A solution of 1 mL of 0.5% plain Marcaine and 1 mL of Kenalog 40 was injected into the AC joint utilizing a 25-gauge needle. After the needle was withdrawn, the site was cleaned with alcohol and a sterile gauze. A Band-Aid was applied. The patient tolerated the procedure well and there were no complications. The patient was not sedated and fully conscious for the injection. Prior to the injection, verification followed the [place] Protocol in the following manner: [X] A Time Out was performed prior to the procedure to confirm patient identification, injection site, and preparation of equipment. [X] The patient was identified using two patient identifiers. [X] Patient allergies were reviewed and verified. [X] The consent was completed and verified for the planned procedure, site, and laterality. [X] The site was marked or the physician was continuously with the patient following discussion and consent. [facility] Physical Therapy: ___ Se ion Segments, 15 Minutes Each Physical Therapy: ___ Session Segments, 15 Minutes Each 13703 06/06 MAGGY BOWENS [facility] Physical Therapy Service Re-Evaluation Physical Therapy Service Re-Evaluation 50390 06/06 MAGGY BOWENS [facility] Physical Therapy Neuromuscular Re-education Physical Therapy Neuromuscular Re-education 47946 04/29 MAGGY BOWENS [facility] Osteopathic Manip Treatment (OMT) 1-2 Body Regions Involved Osteopathic Manip Treatment (OMT) 1-2 Body Regions Involved 17763 04/29 MAGGY BOWENS [facility] Physical Therapy: ___ Se ion Segments, 15 Minutes Each Physical Therapy: ___ Session Segments, 15 Minutes Each 92914 04/29 MAGGY BOWENS [facility] Physical Therapy Service Evaluation Physical Therapy Service Evaluation 56007 04/29 MAGGY BOWENS [facility] Vital Signs Recorded Vital Signs Recorded 04/01 DELMI GONZALEZ [facility] Influenza Virus Vaccine Live Attenuated Intranasal Quadrivalent Influenza Virus Vaccine Live Attenuated Intranasal Quadrivalent 70252 [facility] Immunization Administration By Injection, One Vaccine Immunization Administration By Injection, One Vaccine 17483 01/19 [facility] Audiometry Group Testing Audiometry Group Testing 44483 08/29 ONEAL ISAAC Patient education, not otherwise cla ified, non-physician provider, group, per se ion 08/29 ONEAL ISAAC Screening Test Of Visual Acuity, Quantitative, Bilateral Screening Test Of Visual Acuity, Quantitative, Bilateral 98030 08/18 AMIRA CONDON [facility] Vaccines Viral Moldovan Encephalitis Inactivated, Intramuscular Vaccines Viral Moldovan Encephalitis Inactivated, Intramuscular 98818 08/18 BERTHA IGNACIO JAN Moldovan Encephalitis IM; Series #: 2; .5 mL; IM; Left Arm; [facility]: [employer]; Lot: [id number]; VIS given (Matteo: 04/17/13). [facility] Immunization Administration By Injection, One Vaccine Immunization Administration By Injection, One Vaccine 31766 08/18 BERTHA IGNACIO [facility] Influenza Virus Vaccine Live Attenuated Intranasal Quadrivalent Influenza Virus Vaccine Live Attenuated Intranasal Quadrivalent 83950 01/18 DAVID SOLIS [facility] Modalities Cryotherapy Cold Packs Modalities Cryotherapy Cold Packs 75272 01/07 SOTO SALES [facility] Modalities Vasopneumatic Device Modalities Vasopneumatic Device 42994 01/07 SOTO SALES [facility] Modalities Electrical Stimulation Unattended Modalities Electrical Stimulation Unattended 73609 01/07 SOTO SALES [facility] Physical Therapy: ___ Se ion Segments, 15 Minutes Each Physical Therapy: ___ Session Segments, 15 Minutes Each 52089 01/07 SOTO SALES [facility] Modalities Cryotherapy Cold Packs Modalities Cryotherapy Cold Packs 48846 01/05 SHAKIRA ALANIZ [facility] Modalities Vasopneumatic Device Modalities Vasopneumatic Device 59799 01/05 SHAKIRA ALANIZ [facility] Modalities Electrical Stimulation Unattended Modalities Electrical Stimulation Unattended 75060 01/05 SHAKIRA ALANIZ [facility] Physical Therapy: ___ Se ion Segments, 15 Minutes Each Physical Therapy: ___ Session Segments, 15 Minutes Each 43390 01/05 SHAKIRA ALANIZ [facility] Physical Therapy: ___ Se ion Segments, 15 Minutes Each Physical Therapy: ___ Session Segments, 15 Minutes Each 12575 12/28 KIKI ARZATE [facility] Physical Therapy Service Re-Evaluation Physical Therapy Service Re-Evaluation 07880 12/28 KIKI ARZATE [facility] Modalities Electrical Stimulation Unattended Modalities Electrical Stimulation Unattended 88968 12/24 SOTO SALES [facility] Modalities Cryotherapy Cold Packs Modalities Cryotherapy Cold Packs 66466 12/22 SHAKIRA ALANIZ [facility] Modalities Vasopneumatic Device Modalities Vasopneumatic Device 51095 12/22 SHAKIRA ALANIZ [facility] Physical Therapy: ___ Se ion Segments, 15 Minutes Each Physical Therapy: ___ Session Segments, 15 Minutes Each 12248 12/22 SHAKIRA ALANIZ Modalities Cryotherapy Cold Packs Modalities Cryotherapy Cold Packs 96123 12/15 SOTO SALES Modalities Vasopneumatic Device Modalities Vasopneumatic Device 82664 12/15 SOTO SALES Modalities Ultrasound Modalities Ultrasound 20055 12/15 SOTO SALES Physical Therapy: ___ Se ion Segments, 15 Minutes Each Physical Therapy: ___ Session Segments, 15 Minutes Each 85555 12/15 SOTO SALES Physical Therapy - Unlisted Therapeutic Procedure Physical Therapy - Unlisted Therapeutic Procedure 78014 12/10 SOTO SALES Modalities Cryotherapy Cold Packs Modalities Cryotherapy Cold Packs 50045 12/10 SOTO SALES Modalities Vasopneumatic Device Modalities Vasopneumatic Device 84291 12/10 SOTO SALES Modalities Electrical Stimulation Unattended Modalities Electrical Stimulation Unattended 90025 12/10 SOTO SALES Modalities Ultrasound Modalities Ultrasound 75700 12/10 SOTO SALES Physical Therapy: ___ Se ion Segments, 15 Minutes Each Physical Therapy: ___ Session Segments, 15 Minutes Each 10726 12/10 SOTO SALES Physical Therapy - Unlisted Therapeutic Procedure Physical Therapy - Unlisted Therapeutic Procedure 49194 12/08 SOTO SALES Modalities Cryotherapy Cold Packs Modalities Cryotherapy Cold Packs 59174 12/08 SOTO SALES Ophthalmological New Patient Start Comprehensive Care Ophthalmological New Patient Start Comprehensive Care 03679 SWAPNA ALFARO Determination Of Refractive State Determination Of Refractive State 02153 SWAPNA ALFARO Spectacles Services Fitting Monofocal Except For Aphakia Spectacles Services Fitting Monofocal Except For Aphakia 53599 SWAPNA ALFARO Prescription And Fitting Bilateral Corneal Lenses (Not For Aphakia) Prescription And Fitting Bilateral Corneal Lenses (Not For Aphakia) 00414 SWAPNA ALFARO [facility] Ophthalmological Prior Patient Start Intermediate Level Care Ophthalmological Prior Patient Start Intermediate Level Care 50408 SWAPNA ALFARO [facility] Health And Behav A e mt Each Additional 15 Min Lyric e ment Health And Behav Assessmt Each Additional 15 Min Reassessment 52324 PRERNA ABURTO [facility] Psychometric Emotional / Behavioral A e ment Psychometric Emotional / Behavioral Assessment 42011 PRERNA ABURTO [facility] Disease management program, follow-up/lyric e ment GRACIE CANCINO [facility] Non-Physician Phone Call To Patient/Provider Brief (5-10min) Non-Physician Phone Call To Patient/Provider Brief (5-10min) 17038 ESCOBAR TILLEY [facility] Scanning Computerized Ophthalmic Diagnostic Imaging Optic Nerve Scanning Computerized Ophthalmic Diagnostic Imaging Optic Nerve 41546 ISABEL HYLTON [facility] Ophthalmological Prior Patient Start Comprehensive Care Ophthalmological Prior Patient Start Comprehensive Care [address]58 [facility] Non-Physician Phone Call To Pt/Provider Lengthy (21-30 min) Non-Physician Phone Call To Pt/Provider Lengthy (21-30 min) 59311 ESCOBAR TILLEY [facility] Waiver services; not otherwise specified (NOS) GINA BANUELOS [facility] Skin Biopsy Technique Punch Single Lesion Skin Biopsy Technique Punch Single Lesion 36999 ANGELIQUE GAGE [facility] Skin Biopsy Technique Punch Each Separate/Additiona l Lesion Skin Biopsy Technique Punch Each Separate/Addition al Lesion 65775 ANGELIQUE GAGE Social History Combined list of available smoking, tobacco, and other social history from Department of Defense and Veterans Affairs facilities. Social History Type Response Date Comment [facility] e Tobacco Cigarette use: Never-cigarette user. Other Tobacco use: Never-other tobacco user (not cigarettes). Ambulatory Pharmacy Sexual Orientation Ambula tory Pharmacy Gender identity Ambulator y Pharmacy Male Ambulatory Pha rmacy This section is an empty social history section. DoD Assessment and Plan Combined list of future care activities from Department of Defense and Veterans Affairs facilities (e.g., assessment and plan notes, appointments, orders, and referrals). Additional future care activities may be listed in the Plan of Care section. Result Assessment and Plan Date Source Assessment and Plan Extracted from:Title : [facility]- Anxiety virtual Author: RAFY UMAÑA MD Date: 12/12/23 1.?Anxiety 33?y/o male?with worsening anxiety. ?Reviewed PHQ-9, ODALYS-7. ?Does not appear to be increased safety risk. ? - Recommend starting on daily?fluoxetine 10 mg/day.? - Discussed can take 4-6 to see improvement, as this SSR takes weeks to attain steady state - Continue with MH as previously scheduled? - Seek emergent care for any HI/SI - F/u in 4 weeks. ? Orders: FLUoxetine(FLUoxetine 10 mg oral capsule), 1 cap(s), Oral, Daily, # 30 cap(s), 0 total refill(s), Maintenance, 1 cap(s) Oral Daily,x30 days, Pharmacy: [facility] [Not filled] Extracted from:Title: Routine nondilated exam Author: DAYANARA ELIZABETH, OD Date: 08/07/23 1.?Myopia, bilateral -New Spectacle rx dispensed today as seen below (Manifest=Final Rx) - ?Discussed 2? pair requirement ([facility]).? -? ?Below glasses ordered in SRTS. ? - honor 52-17 -Measurements of anatomical facial characteristics and laboratory specifications were taken for glasses and final adjustment was made to? the visual axes and anatomical topography of the patient at patients request upon delivery. ? ? -New Contact lens rx dispensed- pt will adhere to 2week replacement- plans to obtain CRS though needs small supply in interim ? Acuvue Oasys for Astigmatism 8.6/14.5 ? OD: -3.00-1.38g288 OS: -3.50-1.07y001 ? -Replacement time:?2 weeks ? -Pt educated on proper contact lens care/wear including: good hygiene/hand-washing, adhering to replacement schedule, use of proper contact lens solutions (NO WATER), importance of replacing contact lens case?a minimum of every 3 months ?and no swimming, showering or sleeping in lenses. -Discussed improper wear/care can lead to contact lens intolerance,?infections and permanent vision loss.? ? ? -Non-dilated eye exam reveals good ocular health OU -Pt educated on exam findings, all questions answered ? -pt interested in CRS- meets refractive stability requirements-- techs to email packet -pt is aware he will be dilated next visit, needs to discontinue CL wear 2 weeks prior to CRS testing, and 2 weeks prior to surgery- voices understanding today -no Hx of d/c meds or medical conditions/autoimmune disease, pt aware to contact clinic with any new medical issues. ? ? 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 next appt: CRS workup- pentacam?and DFE at screening ?Diagnosis: ?1. ?Myopia, bilateral ?Comment:?Ordered:??Rx+Fitg C-Lens Supvj Crnl Lens Ou Xcpt Aphk 53173; 08/07/2023 11:41:00 CDT ? Fitting Spectacles Xcpt Aphakia Monofocal 82828; 08/07/2023 11:41:00 CDT ? Ophthalmological Medical Xm&Eval Compre New Pt 1/> Vst 77614; 08/07/2023 11:41:00 CDT ? Determination Refractive State 94796; 08/07/2023 11:41:00 CDT ?Discontinued:??Ophthalmological Medical Xm&Eval Compre New Pt 1/> Vst 18752; 08/07/2023 11:20:00 CDT ? Determination Refractive State 49963; 08/07/2023 11:20:00 CDT ? Fitting Spectacles Xcpt Aphakia Monofocal 31303; 08/07/2023 11:20:00 CDT ? End of Orders ? End of Orders ? Extracted from:Title: [facility] lab f/u. Author: FLORENTIN LOWE DO Date: 07/29/23 Erectile dysfunction Acute no underlying Pysch issues, has worked on lifestyle, will order lipid panel to r/o artery plaques. - given the relatively normal labs will refer to urology for further eval and treatment. - f/u PRN. ? The patient (is ) World Wide Qualified. AM Dispo: Non-Fly? ? Cleared for AFSC/MOS Duties: Yes ? Cleared for continued service: Yes ? Cleared for mobility duties: Yes ? Cleared for participation in physical fitness program: Yes ? PHA/MHA/DRHA: UTD. ? Visit deployment related:?No? ? Profile Reviewed ? MEB in progress: No ? IMR/ASIMS Status: ? Marines: unknown. ? Ordered: Lipid Panel Referral Request 2.0 - DoD ? Florentin Lowe DO, PAUL [place] Family Physician [facility]/Wood Carving Machine Operator [facility] in [place], [place] [address] [address] ? Extracted from:Title: Imms Td Author: ADEEL CHRISTIANSON Date: 07/25/23 Adult Screening Questionnaire 1. Are you sick today? No 2. Do you have allergies to medication food, a vaccine component, or latex? No 3. Have you ever had a serious reaction after receiving a vaccination? No 4. Do you have a intermediate accountant health problem with heart, lung, kidney, metabolic disease (e.g., diabetes), asthma, a blood disorder, no spleen, compliment component deficiency, a cochlear implant, or a spinal fluid leak? No Are you on prison aspirin therapy? No 5. Do you, or a close family member, have cancer, leukemia, HIV/AIDS, or any other immune system problems? No 6. In the past 3 months, have you taken medications, that effect your immune system, such as prednisone, other steroids, or anti-cancer drugs; drugs for treatment of Rheumatoid Arthritis, Crohn's disease, or psoriasis; or have you had radiation treatment? No 7. Have you had a seizure or a brain or other nervous system problems? No 8. During the past year, have you received a transfusion of blood or blood products, or been given immune (gamma) globulin, or an anti-viral drug? No 9. Have you received any vaccinations in the past month? No tetanus-diphth toxoids (Td) adult/adol: 0.5 mL (07/25/23 08:49:00) Diagnosis: 1. Vaccination given Comment: Ordered: Unlisted E&M Service 75504; 07/25/2023 08:49:00 CDT by NURIA ALTAMIRANO MD Other status: tetanus-diphtheria toxoids [Td] adult/adolescent; 0.5 mL, IntraMuscular, Suspension-Injection, Vaccine, First Dose: 07/25/2023 08:49:00 CDT, 07/25/2023 08:49:00 CDT (Completed) by NURIA ALTAMIRANO MD Imadm Prq Id Subq/Im Njxs 1 Vaccine 51830; 07/25/2023 08:49:00 CDT (Completed) by NURIA ALTAMIRANO MD End of Orders More details of the vaccination administered can be found in the patient s Immunization History under the Immunizations tab. 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 33 y.o. AD [facility] male seen for concerns with fatigue x6 months. Of note, member states that he is on an OTC testosterone supplement which he needs, otherwise has severe fatigue and is unable to get through the day, however reports has been on it on and off for a long time, and that he believes he was on it at his September 2022 testosterone screening, in which he had a normal total testosterone. Does note he was referred to Urology who DID repeat his test and was low on testosterone, per member, however do not see the results in record, but they had started him on a trial of Viagra 25mg which member said gave him an erection but failed to maintain it more than five minutes , and in addition did not meet prior authorization criteria, and so member has been on supplement until now, but has been taking a sleep tea for sleep, and denies any specific pre-workout apart from protein, but feels he is all out of whack and is looking for treatment options -counseled member that particularly given the supplement companies are unregulated, it is impossible to tell what he is actually taking, and whether it is causing some of his other symptoms (e.g. stimulants causing insomnia, testosterone causing suppression of natural production, etc) -HIGHLY recommended discontinuing altogether, but at minimum recommended coming off all supplements for a month before doing the testing, since the danger of being on the supplement and doing the test is that his labs may continue to appear normal as it did in September 2022, if he was indeed on the OTC supplement at the time -once labs back, depending if he needs a repeat lab will message member to repeat any abnormals, otherwise, will have them schedule follow up visit to review labs and discuss treatment plan -f/u sooner as needed ? //SIGNED// MICHAEL BREWSTER, Col, TONIEF, MC, FS? Vacuum Conditioner Operator, [facility] Family Physician/Flight Surgeon [place]?AFB, [facility]?[place] DSN/Comm: [phone] / [phone] ? 2.?Left shoulder pain 33 y.o. ADAF male seen for left shoulder pain x1 month. No inciting event, just had it on waking. On exam reproducible TTP at proximal biceps insertion and AC joint, as well as positive empty can test. No pain with internal and external rotation against resistance. Does have increased pain lifting above shoulder height, negative drop test. Please eval and treat for subacute biceps and supraspinatus strain. 04/17/2024 Ambulatory Pharmacy Functional Status Combined list of recent functional and cognitive assessments recorded at Department of Defense and Veterans Affairs (VA).VA Functional [place] Measurement (FIM) Scale: 1 = Total Assistance (Subject = 0% +), 2 = Maximal Assistance (Subject = 25% +), 3 = Moderate Assistance (Subject = 50% +), 4 = Minimal Assistance (Subject = 75% +), 5 = Supervision, 6 = Modified [place] (Device), 7 = Complete [place] (Timely, Safely). Assessment Date/Time Source Assessment Type Assessment Skill Assessment Score Assessment Details No data available for this section
== END 2024-04-15 00:21 | disposition home or self-care (01) ==
PROVIDERS: Emergency Medicine; Emergency Provider Emergency Medicine
DX: R06.00 Dyspnea, unspecified (principal); R07.9 Chest pain, unspecified; Z20.822 Contact with and (suspected) exposure to COVID-19
CPT/HCPCS: 36415; 71046; 71275; 80053; 83690; 83880; 84484; 85025; 85610; 85730; 87637; 93005; 99284; Q9967